=== PATIENT | male | born 1965 | race Caucasian/White ===

== ENCOUNTER 2017-05-28 10:05 | Emergency (ER) | END 2017-05-28 11:15 | disposition home or self-care (01) ==

== ENCOUNTER → 2017-06-08 | Outpatient (CLI) | END | disposition home or self-care (01) ==

== ENCOUNTER 2017-08-05 16:50 | Emergency (ER) | END 2017-08-05 18:43 | disposition home or self-care (01) ==

== ENCOUNTER 2017-11-15 02:52 | Inpatient (IN) | END 2017-12-23 17:50 | disposition home or self-care (01) | DRG 571 ==

== ENCOUNTER 2018-03-14 07:51 | Emergency (ER) | END 2018-03-14 19:56 | disposition home or self-care (01) ==

== ENCOUNTER 2018-07-13 22:27 | Inpatient (IN) | payer MEDICAID ==
[~2018-07-13] VITALS: Ht 177.8 cm; Wt 68.2 kg
[~2018-07-13 22:27] MED LIST changes: -CLON0.1T14 PO; -DOCU-144 PO; -DULO30CA47 PO; -FURO20TA3 PO; -LABE100T7 PO; -LEVE500T8 PO; -LEVO25TA6 PO; -MYCO250C3 PO; -POTA8CAP PO
[2018-07-13 22:33] VITALS: Ht 177.8 cm; Wt 68.2 kg
--- NOTE | 2018-07-13 22:57 | ERD ---
ER Documentation Chief Complaint Chief Complaint BIB RA881 from home,tripped & fell,c/o L hip pain,no deformity,HD MWF HPI The patient is a 53-year-old male, presenting to the ER because of left hip pain after he had a mechanical fall just prior to arrival, denies any other injury, denies headache, facial pain, neck pain, chest pain, dyspnea, abdominal pain, vomiting, dizzy, diarrhea. 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 Medications Home Meds Reported Medications Mycophenolate Mofetil* (Cellcept*) 250 Mg Capsule, 250 MG PO BID, CAP 07/14/18 Levetiracetam* (Levetiracetam*) 500 Mg Tablet, 500 MG PO BID, TAB 07/14/18 Acetaminophen* (Acetaminophen*) 650 Mg Tablet, 650 MG PO Q6H PRN for PAIN AND OR ELEVATED TEMP, #30 TAB 03/14/18 Nitroglycerin* (Nitrostat*) 0.4 Mg Tab.subl, 0.4 MG SL Q5MIN PRN for CHEST PAIN, BOTTLE 03/14/18 Dutasteride* (Avodart*) 0.5 Mg Capsule, 0.5 MG PO DAILY, CAP 03/14/18 Atorvastatin Calcium* (Atorvastatin Calcium*) 20 Mg Tablet, 20 MG PO QHS, #30 TAB 03/14/18 Aspirin* (Aspirin* EC) 81 Mg Tablet.dr, 81 MG PO DAILY, TAB 03/14/18 Clonidine Hcl* (Clonidine Hcl*) 0.1 Mg Tab, 0.1 MG PO BID, TAB 03/14/18 Nifedipine* (Nifedipine ER*) 60 Mg Tablet.sa, 60 MG PO DAILY, TAB.SA 03/14/18 Mycophenolate Sodium* (Myfortic*) 180 Mg Tab, 540 MG PO Q12, TAB 03/14/18 Tacrolimus* (Prograf*) 0.5 Mg Capsule, 0.5 MG PO Q12, CAP 03/14/18 Tacrolimus* (Prograf*) 1 Mg Capsule, 1 MG PO Q12, CAP 03/14/18 Discontinued Reported Medications Ranolazine* (Ranexa*) 500 Mg Tab.sr.12h, 500 MG PO Q12, TAB 03/14/18 Zinc Sulfate* (Zinc Sulfate*) 220 Mg Tablet, 220 MG PO DAILY, TAB 03/14/18 Folic Acid* (Folic Acid*) 1 Mg Tablet, 1 MG PO DAILY, TAB 03/14/18 Isosorbide Mononitrate* (Isosorbide Mononitrate*) 60 Mg Tab.er.24h, 60 MG PO DAILY, TAB 03/14/18 Prednisone* (Prednisone*) 2.5 Mg Tablet, 2.5 MG PO DAILY, TAB 03/14/18 Allergies Allergies: Coded Allergies: No Known Allergy (Unverified , 07/14/18) PMhx/Soc History of Surgery: Yes (KIDNEY/PANCREAS TRANSPLANT (2005), HEAD SHUNT (2010), R FOOT # 1-5 AMPUTATI) Anesthesia Reaction: No Hx Neurological Disorder: Yes (CVA WITH LEFT SIDE WEAKNESS, NEUROPATHY BILATERAL FEET) Hx Respiratory Disorders: Yes (SOB) Hx Cardiac Disorders: Yes (BRADYCARDIA, HTN) Hx Psychiatric Problems: No Hx Miscellaneous Medical Probl: Yes (SKIN CA RT ARM) Hx Alcohol Use: No Hx Substance Use: No Hx Tobacco Use: Yes (LAST WAS 2001) Physical Exam Vitals Vital Signs Date Temp Pulse Resp B/P (MAP) Pulse Ox O2 O2 Flow FiO2 Time Delivery Rate 07/14/18 67 12 178/87 100 Room Air 02:02 (117) 07/14/18 57 14 201/90 100 Room Air 01:08 (127) 07/13/18 97.8 68 18 239/111 100 22:33 (153) Physical Exam Const: No acute distress. Head: Atraumatic. Eyes: Normal Conjunctiva. ENT: Normal External Ears, Nose and Mouth. Neck: Full range of motion. No meningismus. Resp: Clear to auscultation bilaterally. Cardio: Regular rate and rhythm. Abd: Soft, non distended, normal bowel sounds, non tender. Skin: No petechiae or rashes. Back: No midline or flank tenderness. Ext: Mild left hip tenderness, no skin violation Neur: Awake and alert. No focal deficit Psych: Normal Mood and Affect. Result Diagram: 07/13/18 2351 07/13/18 2351 Results 24 hrs Laboratory Tests Test 07/13/18 23:51 White Blood Count 4.2 10^3/ul Red Blood Count 2.90 10^6/ul Hemoglobin 8.9 g/dl Hematocrit 30.0 % Mean Corpuscular Volume 103.4 fl Mean Corpuscular Hemoglobin 30.7 pg Mean Corpuscular Hemoglobin Concent 29.7 g/dl Red Cell Distribution Width 21.1 % Platelet Count 218 10^3/UL Mean Platelet Volume 9.8 fl Immature Granulocytes % 0.500 % Neutrophils % 63.5 % Lymphocytes % 20.2 % Monocytes % 14.2 % Eosinophils % 1.4 % Basophils % 0.2 % Nucleated Red Blood Cells % 0.0 /100WBC Immature Granulocytes # 0.020 10^3/ul Neutrophils # 2.6 10^3/ul Lymphocytes # 0.8 10^3/ul Monocytes # 0.6 10^3/ul Eosinophils # 0.1 10^3/ul Basophils # 0.0 10^3/ul Nucleated Red Blood Cells # 0.0 10^3/ul Sodium Level 144 mmol/L Potassium Level 4.3 mmol/L Chloride Level 104 mmol/L Carbon Dioxide Level 31 mmol/L Anion Gap 9 Blood Urea Nitrogen 30 mg/dl Creatinine 1.97 mg/dl Est Glomerular Filtrat Rate mL/min 35 mL/min Glucose Level 113 mg/dl Calcium Level 9.0 mg/dl Current Medications Medications Dose Sig/Lior Start Time Status Last (Trade) Ordered Route PRN Stop Time Admin Dose Reason Admin Morphine 2 mg ONCE STAT 07/13/18 DC 07/13/18 Sulfate IV 23:39 07/13/18 23:54 (morphine) 23:40 Ondansetron 4 mg ONCE STAT 07/13/18 DC 07/13/18 HCl (Zofran IV 23:39 07/13/18 23:54 Inj) 23:40 Morphine 2 mg ONCE STAT 07/14/18 DC 07/14/18 Sulfate IV 00:43 07/14/18 01:00 (morphine) 00:44 Hydralazine 20 mg ONCE ONCE 07/14/18 DC 07/14/18 HCl IV 01:30 07/14/18 01:37 (Apresoline) 01:34 Procedures/[place] [address] Rad[facility] Main Line: [phone] DIAGNOSTIC IMAGING REPORT Patient: DANETTE GAXIOLA : 1965 Age: 53 Sex: M MR #: [id number] DOS: 07/13/187 Ordering MD: AUSTIN RAMIREZ MD Location: E/R Room/Bed: PROCEDURE: DX Chest 1 View CLINICAL INDICATION: Chest pain. Ground-level fall per TECHNIQUE: AP Portable chest. COMPARISON: 05/08/2014 FINDINGS: Heart is increased slightly in size since the previous exam. Prominent mediastinum. Aortic calcified plaque absent. Central peribronchial thickening. Lungs are clear. IMPRESSION: Bronchitis versus central peribronchial edema. RPTAT: HLRS Physician Mohamud Date Time Electronically viewed and signed by Iram Palafox Physician on 07/14/2018 01:15 RS/ CC: AUSTIN RAMIREZ MD [id number] [place] [id number] Radiology Main Line: [phone] DIAGNOSTIC IMAGING REPORT Patient: DANETTE GAXIOLA : 1965 Age: 53 Sex: M MR #: [id number] DOS: 07/13/18 2337 Ordering MD: AUSTIN RAMIREZ MD Location: E/R Room/Bed: PROCEDURE: DX Femur. CLINICAL INDICATION: Ground-level fall. Left leg pain. TECHNIQUE: AP and lateral views COMPARISON: None. FINDINGS: Osseous structures: Normal bone mineralization. No acute fracture. No lytic or blastic changes. Soft tissues: Multiple surgical clips are present within the pelvis and proximal foreleg. Vascular calcifications are noted. IMPRESSION: No acute changes. RPTAT: HLRS Physician Mohamud Date Time Electronically viewed and signed by Iram Plaafox Physician on 07/14/2018 01:16 RS/ CC: AUSTIN RAMIREZ MD [id number] [place] [address] Radiology Main Line: [phone] DIAGNOSTIC IMAGING REPORT Patient: DANETTE GAXIOLA : 1965 Age: 53 Sex: M MR #: [id number] DOS: 07/13/18 2337 Ordering MD: AUSTIN RAMIREZ MD Location: E/R Room/Bed: PROCEDURE: CT pelvis without contrast CLINICAL INDICATION: 53-year-old male. Left hip pain after ground-level fall. TECHNIQUE: A CT of the pelvis was performed on a multi-slice CT scanner utilizing high-resolution axial imaging. Sagittal, coronal, multiplanar reformatted images were made. Soft tissue and bone algorithms were utilized. One or more the following dose reduction techniques were utilized: Automated exposure control, adjustment of the mA/ or kV according to patient's size, or use of iterative reconstruction technique. The CTDIvol is 4.74 mGy and the DLP is 175.91 mGy-cm. COMPARISON: Pelvis x-ray 07/13/2018 FINDINGS: Osseous structures: No left hip fracture is identified. Intact bony pelvis. No lytic or blastic lesions. Joints: No left hip dislocation. Intact left and right sacroiliac joints and pubic symphysis. Soft tissue structures: Multi lumen right femoral vein catheter, terminating just proximal to the origin of the IVC. Anterior left lower quadrant renal transplant. IMPRESSION: No evidence of left hip fracture or dislocation. RPTAT: HLRS Physician Mohamud Date Time Electronically viewed and signed by Iram Palafox Physician on 07/14/2018 01:14 RS/ CC: AUSTIN RAMIREZ MD [id number] EKG: Read by emergency physician Rate/Rhythm: Normal Sinus Rhythm 57 beats/min QRS, ST, T-waves: No ST elevation, no T inversion, PAC Impression: Abnormal EKG MEDICAL MAKING DECISION: The patient is a 53-year-old male, presenting with acute left hip pain, unable to ambulate in the ER, acute hypertensive urgency. He was treated with morphine 2 mg IV x2 for pain, Zofran 4 mg IV for nausea, hydralazine 10 mg IV for acute accelerated hypertension with good response The differential diagnoses considered include but are not limited to internal derangement, fracture, contusion Departure Diagnosis: Primary Impression: Left hip pain Additional Impressions: Hypertensive urgency Anemia Leukopenia Condition: Stable Comments I discussed the findings with the patient. I am waiting for Dr Benito to call back to admit the patient Disclaimer: Inadvertent spelling and grammatical errors are likely due to EHR/dictation software use and do not reflect on the overall quality of patient care. Also, please note that the electronic time recorded on this note does not necessarily reflect the actual time of the patient encounter. AUSTIN RAMIREZ MD Jul 13, 2018 22:57
[2018-07-13] MEDS ORDERED: ONDANSETRON 4 MG INJ IV STA (23:39)
[2018-07-13] MEDS ORDERED: morphine 2 MG INJ IV STA (23:39)
[2018-07-14] VITALS (18 sets, daily range): BP systolic 99–178; BP diastolic 56–96; PULSE 56–65; RESP 16
[2018-07-14] MEDS ORDERED: morphine 2 MG INJ IV STA ×2 (00:43→04:44)
[2018-07-14] MEDS ORDERED: hydrALAzine 20 MG INJ IV ONE (01:30)
[2018-07-14] MEDS ORDERED: LEVE500T8 PO (02:10)
[2018-07-14] MEDS ORDERED: MYCO250C3 PO (02:10)
[2018-07-14] MEDS ORDERED: ONDANSETRON 4 MG INJ IV PRN (09:00)
[2018-07-14] MEDS ORDERED: PANTOPRAZOLE 40 MG INJ IV SCH (09:00)
[2018-07-14] MEDS ORDERED: ACETAMINOPHEN 325 MG TAB PO PRN (09:00)
[2018-07-14] MEDS: morphine 2 MG INJ IV PRN ×3 (09:29→23:57)
[2018-07-14] MEDS ORDERED: GLUCOSE GEL 15 GRAM TUBE PO PRN ×2 (09:30)
[2018-07-14] MEDS ORDERED: GLUCAGON 1 MG INJ IM PRN (09:30)
[2018-07-14] MEDS ORDERED: GLUCOSE GEL 15 GRAM TUBE BUCCAL PRN (09:30)
[2018-07-14] MEDS ORDERED: DEXTROSE 50% 50 ML SYRINGE IV PRN ×2 (09:30)
[2018-07-14] MEDS: INSULIN ASPART [NOVOLOG] 3 ML PEN SC SCH ×3 (12:00→21:00)
[2018-07-14] MEDS ORDERED: FURO20TA3 PO (14:09)
[2018-07-14] MEDS ORDERED: DULO30CA47 PO (14:12)
[2018-07-14] MEDS ORDERED: POTA8CAP PO (14:12)
[2018-07-14] MEDS ORDERED: LEVO25TA6 PO (14:12)
[2018-07-14] MEDS ORDERED: LABE100T7 PO (14:12)
[2018-07-14] MEDS ORDERED: DOCU-144 PO (14:12)
--- NOTE | 2018-07-14 14:17 | HP ---
NIKI HASSAN 07/14/18 1417: Date/Time of Note Date/Time of Note DATE: 07/14/18 TIME: 14:17 Assessment/Plan VTE Prophylaxis Pharmacological prophylaxis: heparin Pharm contraindication: other Lines/Catheters IV Catheter Type (from Nrsg): Saline Lock Assessment/Plan Hospital Course 1. S/p ground fall, left hip pain. Per CT scan of pelvis negative fractures, left hip Xray is negative 2. Bronchitis versus central peribronchial edema per chest Xray. 3. History of kidney and pancreatic transplant, on Tacrolimus. 4. ESRD on HD MWFr 5. Hypertension. 6. Macrocytic normochromic anemia. 7. Peripheral vascular disease, status post left popliteal bypass on 12/02/2017. 8. Right foot partial amputation. 9. Skin cancer with right hand malignant lesion. 10. Diabetes mellitus type II 11. Hypothyroidism 12. Depression 13. CAD 14. Adrenal insufficiency 15. dyslipidemia 16. Bradycardia, asymptomatic Assessment/Plan -DVT prophylaxis Heparin 5000 BID -GI prophylaxis Protonix -BP control -C.w HD c/w home meds -c/w LAsix -pain control -TSH tomorrow Result Diagram: 07/13/18 2351 07/13/18 2351 Results 24hrs Laboratory Tests Test 07/13/18 23:49 07/13/18 23:51 07/14/18 13:11 Hepatitis B Surface Antigen NEGATIVE White Blood Count 4.2 #L Red Blood Count 2.90 #L Hemoglobin 8.9 #L Hematocrit 30.0 #L Mean Corpuscular Volume 103.4 H Mean Corpuscular Hemoglobin 30.7 Mean Corpuscular Hemoglobin Concent 29.7 L Red Cell Distribution Width 21.1 #H Platelet Count 218 Mean Platelet Volume 9.8 Immature Granulocytes % 0.500 H Neutrophils % 63.5 Lymphocytes % 20.2 Monocytes % 14.2 H Eosinophils % 1.4 Basophils % 0.2 Nucleated Red Blood Cells % 0.0 Immature Granulocytes # 0.020 Neutrophils # 2.6 Lymphocytes # 0.8 Monocytes # 0.6 Eosinophils # 0.1 Basophils # 0.0 Nucleated Red Blood Cells # 0.0 Sodium Level 144 Potassium Level 4.3 Chloride Level 104 Carbon Dioxide Level 31 Anion Gap 9 Blood Urea Nitrogen 30 H Creatinine 1.97 H Est Glomerular Filtrat Rate mL/min 35 L Glucose Level 113 Calcium Level 9.0 Bedside Glucose 118 HPI/ROS Admit Date/Time Admit Date/Time Jul 14, 2018 at 06:31 Hx of Present Illness This is a 53-year-old male with a past medical history of kidney and pancreatic transplant, CKD, hypothyroidism, depression, and anemia presented to the ER because of left hip pain after he had a mechanical fall just prior to arrival. He said he fail on 07/12 in HD center. He lost his balance,denied loss of consciousness. He was started on HD 04/25/2019 ROS weak Respiratory: cough; No no complaints, No pain, No pleuritic pain, No shortness of breath, No sputum, No wheezing, No other Cardiovascular: chest pain; No no complaints, No edema, No lightheadedness, No orthopenea, No palpitations, No paroxysmal nocturnal dyspnea, No other Gastrointestinal: constipation; No no complaints, No pain, No blood, No decreased appetite, No diarrhea, No flatus, No nausea, No passing stool, No vomiting, No other Genitourinary: dysuria; No no complaints, No bleeding, No discharge, No flank pain, No hematuria, No other Musculoskeletal: bone/joint pain Endocrine: dry skin Psychological: depression PMH/Family/Social Past Medical History Medical History: coronary artery disease, hypertension, renal disease Medications Current Medications Acetaminophen (Tylenol Tab) 650 mg Q6H PRN PO MILD PAIN(1-3)OR ELEVATED TEMP; Start 07/14/18 at 09:00 Ondansetron HCl (Zofran Inj) 4 mg Q6H PRN IV NAUSEA AND/OR VOMITING; Start 07/14/18 at 09:00 Pantoprazole (Protonix Iv) 40 mg DAILY@06 IV Last administered on 07/14/18at 10:20; Admin Dose 40 MG; Start 07/14/18 at 09:00 Morphine Sulfate (morphine) 2 mg Q4H PRN IV SEVERE PAIN LEVEL 7-10 Last administered on 07/14/18at 13:31; Admin Dose 2 MG; Start 07/14/18 at 09:00 Insulin Aspart (Novolog Insulin Pen) NOVOLOG *MILD* ALGORITHM WITH MEALS BEDTIME SC ; Start 07/14/18 at 12:00 Hydralazine HCl (Apresoline) 10 mg Q6H PRN IV SBP GREATER THAN 170; Start 07/14/18 at 09:00 Miscellaneous Information 1 ea NOTE XX ; Start 07/14/18 at 09:30 Glucose (Glutose) 15 gm Q15M PRN PO DECREASED GLUCOSE; Start 07/14/18 at 09:30 Glucose (Glutose) 22.5 gm Q15M PRN PO DECREASED GLUCOSE; Start 07/14/18 at 09:30 Dextrose (D50w Syringe) 25 ml Q15M PRN IV DECREASED GLUCOSE; Start 07/14/18 at 0 9:30 Dextrose (D50w Syringe) 50 ml Q15M PRN IV DECREASED GLUCOSE; Start 07/14/18 at 09:30 Glucagon (Glucagen) 1 mg Q15M PRN IM DECREASED GLUCOSE; Start 07/14/18 at 09:30 Glucose (Glutose) 15 gm Q15M PRN BUCCAL DECREASED GLUCOSE; Start 07/14/18 at 09:30 Diagnostic Test (Pha) (Accu-Chek) 1 ea 02 XX ; Start 07/15/18 at 02:00 Coded Allergies: No Known Allergy (Unverified , 07/14/18) Past Surgical History Past Surgical Hx: other (pancreas and kidney transplant, s.p right foot partial amputation) Social History Alcohol Use: none Smoking Status: Never smoker Drug Use: none Exam/Review of Systems Vital Signs Vitals Vital Signs Date Temp Pulse Resp B/P (MAP) Pulse Ox O2 O2 Flow FiO2 Time Delivery Rate 07/14/18 97.9 56 16 178/96 95 Room Air 08:15 (123) Exam Exam right hip Permacath Constitutional: alert, oriented Psych: depression Eyes: other (left eye discoloration) ENMT: nl external ears & nose Neck: supple Cardiovascular: regular rate and rhythm Gastrointestinal: soft, surgical scars Musculoskeletal: joint tenderness (both hips), muscle weakness Skin: ecchymosis, other (left foot redness and pain) JEVON MANCILLA MD 07/14/18 1723: Assessment/Plan Assessment/Plan Assessment/Plan SEEN ADN EXAMINED WITH [facility] PHOTOGRAPHER LEFT HIP PAIN XRAY AND CT NEG ORTHO CONSULT Result Diagram: 07/13/18 2351 07/13/18 2351 PMH/Family/Social Past Medical History Coded Allergies: No Known Allergy (Unverified , 07/14/18) NIKI HASSAN Jul 14, 2018 14:17 JEVON MANCILLA MD Jul 14, 2018 17:23
[2018-07-14] MEDS ORDERED: HEPARIN 1000 UNITS/ML 10 ML INJ CATHETER ONE (14:30)
[2018-07-14] MEDS ORDERED: NITROGLYCERIN (SL) 0.4 MG TAB SL PRN (14:30)
[2018-07-14] MEDS: TACROLIMUS 0.5 MG CAP PO SCH (17:59)
[2018-07-14] MEDS: DUTASTERIDE 0.5 MG CAP PO SCH (18:00)
[2018-07-14] MEDS: DOCUSATE SODIUM 100 MG CAP PO SCH (18:00)
[2018-07-14] MEDS: DULOXETINE 30 MG CAP DR PO SCH (18:00)
[2018-07-14] MEDS: ASPIRIN (EC) 81 MG TAB PO SCH (18:00)
[2018-07-14] MEDS: TACROLIMUS 1 MG CAP PO SCH (18:00)
[2018-07-14] MEDS: NIFEdipine (XL) 60 MG TAB PO SCH (18:01)
[2018-07-14] MEDS: FUROSEMIDE 20 MG TAB PO SCH (18:01)
[2018-07-14] MEDS ORDERED: MYCOPHENOLATE 250 MG CAP PO SCH (21:00)
[2018-07-14] MEDS: HEPARIN 5,000 UNIT/1 ML VIAL SC SCH (21:00)
[2018-07-14] MEDS: LEVETIRACETAM 500 MG TAB PO SCH (21:00)
[2018-07-14] MEDS: POTASSIUM CHLORIDE (SR) 8 MEQ CAP PO SCH (21:35)
[2018-07-14] MEDS: ATORVASTATIN 20 MG TAB PO SCH (21:35)
[2018-07-14] MEDS: MYCOPHENOLATE (SR) 180 MG TAB PO SCH (21:36)
[2018-07-14] MEDS: EPOETIN 4000 UNITS/1 ML INJ (ESRD) SC SCH (21:48)
[2018-07-15] MEDS: DOCUSATE SODIUM 100 MG CAP PO SCH ×3 (01:00→20:26)
[2018-07-15] MEDS: TACROLIMUS 0.5 MG CAP PO SCH ×3 (01:00→20:25)
[2018-07-15] MEDS: TACROLIMUS 1 MG CAP PO SCH ×3 (01:00→20:25)
[2018-07-15 01:30] VITALS: BP 154/75; PULSE 60; RESP 16
[2018-07-15] MEDS ORDERED: ACCUCHECK AT 2AM (Patients on SS coverage) XX SCH (02:00)
[2018-07-15] MEDS: PANTOPRAZOLE (EC) 40 MG TAB PO SCH (05:27)
[2018-07-15] MEDS: morphine 2 MG INJ IV PRN ×2 (05:27→20:35)
[2018-07-15] MEDS: FUROSEMIDE 20 MG TAB PO SCH ×2 (05:28→18:08)
[2018-07-15 07:23] VITALS: BP 146/73; PULSE 53; RESP 16
[2018-07-15] MEDS: INSULIN ASPART [NOVOLOG] 3 ML PEN SC SCH ×2 (08:00→12:00)
[2018-07-15] MEDS: DUTASTERIDE 0.5 MG CAP PO SCH (09:20)
[2018-07-15] MEDS: LEVETIRACETAM 500 MG TAB PO SCH ×2 (09:20→18:07)
[2018-07-15] MEDS: DULOXETINE 30 MG CAP DR PO SCH (09:20)
[2018-07-15] MEDS: MYCOPHENOLATE (SR) 180 MG TAB PO SCH ×2 (09:20→20:25)
[2018-07-15] MEDS: POTASSIUM CHLORIDE (SR) 8 MEQ CAP PO SCH ×2 (09:21→20:26)
[2018-07-15] MEDS: ASPIRIN (EC) 81 MG TAB PO SCH (09:21)
[2018-07-15] MEDS: LEVOTHYROXINE 100 MCG TAB PO SCH (09:21)
[2018-07-15] MEDS: LABETALOL 100 MG TAB PO SCH (09:22)
[2018-07-15] MEDS: HEPARIN 5,000 UNIT/1 ML VIAL SC SCH ×2 (09:40→20:28)
[2018-07-15 14:27] VITALS: BP 117/66; PULSE 53; RESP 16
--- NOTE | 2018-07-15 15:09 | PN ---
Date/Time of Note Date/Time of Note DATE: 07/15/18 TIME: 15:06 Assessment/Plan VTE Prophylaxis Risk score (from Nsg)>0 risk: 2 SCD applied (from Nsg): Yes Pharmacological prophylaxis: heparin Lines/Catheters IV Catheter Type (from Nrsg): Saline Lock Urinary Cath still in place: No Assessment/Plan Hospital Course 1. S/p ground fall, left hip pain. Per CT scan of pelvis negative fractures, left hip Xray is negative. Pain is not controlled by meds 2. Bronchitis versus central peribronchial edema per chest Xray. Clinically clear. Sometimes it takes 72 hours to be seen on Xray. F/up chest Xray 3. History of kidney and pancreatic transplant, on Tacrolimus. 4. ESRD on HD MWFr 5. Hypertension. 6. Macrocytic normochromic anemia. 7. Peripheral vascular disease, status post left popliteal bypass on 12/02/2017. 8. Right foot partial amputation. 9. Skin cancer with right hand malignant lesion. 10. Diabetes mellitus type II 11. Hypothyroidism 12. Depression 13. CAD 14. Adrenal insufficiency 15. dyslipidemia 16. Bradycardia, asymptomatic Assessment/Plan -DVT prophylaxis Heparin 5000 BID Chest xray tomorrow -stop accucheck , pt is not diabetic -Dr Tariq for orthoconsult, called -GI prophylaxis Protonix -BP control -C.w HD c/w home meds -c/w LAsix -pain control -TSH normal Result Diagram: 07/15/18 0451 07/15/18 0452 Results 24hrs Laboratory Tests Test 07/14/18 17:55 07/15/18 02:55 07/15/18 04:49 07/15/18 04:51 Bedside Glucose 96 79 Hemoglobin A1c 5.0 White Blood Count 4.1 L Red Blood Count 3.02 L Hemoglobin 9.4 L Hematocrit 31.3 L Mean Corpuscular Volume 103.6 H Mean Corpuscular 31.1 Hemoglobin Mean Corpuscular 30.0 L Hemoglobin Concent Red Cell Distribution 20.8 H Width Platelet Count 219 Mean Platelet Volume 9.7 Immature Granulocytes % 0.500 H Neutrophils % 55.4 Lymphocytes % 25.1 Monocytes % 17.3 H Eosinophils % 1.5 Basophils % 0.2 Nucleated Red Blood 0.0 Cells % Immature Granulocytes # 0.020 Neutrophils # 2.3 Lymphocytes # 1.0 Monocytes # 0.7 Eosinophils # 0.1 Basophils # 0.0 Nucleated Red Blood 0.0 Cells # Thyroid Stimulating 1.200 Hormone (TSH) Test 07/15/18 04:52 07/15/18 08:13 Sodium Level 141 Potassium Level 4.7 Chloride Level 106 Carbon Dioxide Level 30 Anion Gap 5 Blood Urea Nitrogen 22 H Creatinine 1.64 H Est Glomerular Filtrat 44 L Rate mL/min Glucose Level 82 Calcium Level 8.6 Bedside Glucose 75 Subjective 24 Hr Interval Summary Cardiovascular: no complaints Musculoskeletal: bone/joint pain (left hip pain) Exam/Review of Systems Exam Vitals Vital Signs Date Temp Pulse Resp B/P (MAP) Pulse Ox O2 O2 Flow FiO2 Time Delivery Rate 07/15/18 98.3 53 16 117/66 99 Room Air 14:27 (83) Intake and Output 07/14/18 07/14/18 07/15/18 1515:00 23:00 07:00 OutputOutput Total 0 ml 2600 ml BalanceBalance 0 ml -2600 ml Exam right hip Permcath Constitutional: alert, oriented Neck: supple Respiratory: clear to auscultation Cardiovascular: regular rate and rhythm Gastrointestinal: soft, surgical scars Musculoskeletal: joint tenderness (left hip) Results Results 24hrs Laboratory Tests Test 07/14/18 17:55 07/15/18 02:55 07/15/18 04:49 07/15/18 04:51 Bedside Glucose 96 79 Hemoglobin A1c 5.0 White Blood Count 4.1 L Red Blood Count 3.02 L Hemoglobin 9.4 L Hematocrit 31.3 L Mean Corpuscular Volume 103.6 H Mean Corpuscular 31.1 Hemoglobin Mean Corpuscular 30.0 L Hemoglobin Concent Red Cell Distribution 20.8 H Width Platelet Count 219 Mean Platelet Volume 9.7 Immature Granulocytes % 0.500 H Neutrophils % 55.4 Lymphocytes % 25.1 Monocytes % 17.3 H Eosinophils % 1.5 Basophils % 0.2 Nucleated Red Blood 0.0 Cells % Immature Granulocytes # 0.020 Neutrophils # 2.3 Lymphocytes # 1.0 Monocytes # 0.7 Eosinophils # 0.1 Basophils # 0.0 Nucleated Red Blood 0.0 Cells # Thyroid Stimulating 1.200 Hormone (TSH) Test 07/15/18 04:52 07/15/18 08:13 Sodium Level 141 Potassium Level 4.7 Chloride Level 106 Carbon Dioxide Level 30 Anion Gap 5 Blood Urea Nitrogen 22 H Creatinine 1.64 H Est Glomerular Filtrat 44 L Rate mL/min Glucose Level 82 Calcium Level 8.6 Bedside Glucose 75 Medications Medication Current Medications Acetaminophen (Tylenol Tab) 650 mg Q6H PRN PO MILD PAIN(1-3)OR ELEVATED TEMP; Start 07/14/18 at 09:00 Ondansetron HCl (Zofran Inj) 4 mg Q6H PRN IV NAUSEA AND/OR VOMITING; Start 07/14/18 at 09:00 Morphine Sulfate (morphine) 2 mg Q4H PRN IV SEVERE PAIN LEVEL 7-10 Last administered on 07/15/18at 05:27; Admin Dose 2 MG; Start 07/14/18 at 09:00 Insulin Aspart (Novolog Insulin Pen) NOVOLOG *MILD* ALGORITHM WITH MEALS BEDTIME SC ; Start 07/14/18 at 12:00 Hydralazine HCl (Apresoline) 10 mg Q6H PRN IV SBP GREATER THAN 170; Start 07/14/18 at 09:00 Miscellaneous Information 1 ea NOTE XX ; Start 07/14/18 at 09:30 Glucose (Glutose) 15 gm Q15M PRN PO DECREASED GLUCOSE; Start 07/14/18 at 09:30 Glucose (Glutose) 22.5 gm Q15M PRN PO DECREASED GLUCOSE; Start 07/14/18 at 09:30 Dextrose (D50w Syringe) 25 ml Q15M PRN IV DECREASED GLUCOSE; Start 07/14/18 at 09:30 Dextrose (D50w Syringe) 50 ml Q15M PRN IV DECREASED GLUCOSE; Start 07/14/18 at 09:30 Glucagon (Glucagen) 1 mg Q15M PRN IM DECREASED GLUCOSE; Start 07/14/18 at 09:30 Glucose (Glutose) 15 gm Q15M PRN BUCCAL DECREASED GLUCOSE; Start 07/14/18 at 09:30 Diagnostic Test (Pha) (Accu-Chek) 1 ea 02 XX Last administered on 07/15/18at 02:50; Admin Dose 1 EA; Start 07/15/18 at 02:00 Pantoprazole (Protonix Tab) 40 mg DAILY@06 PO Last administered on 07/15/18at 05:27; Admin Dose 40 MG; Start 07/15/18 at 06:00 Aspirin (Halfprin) 81 mg DAILY PO Last administered on 3/9/19at 09:21; Admin Dose 81 MG; Start 07/14/18 at 16:00 Atorvastatin Calcium (Lipitor) 20 mg QHS PO Last administered on 07/14/18 21:35; Admin Dose 20 MG; Start 07/14/18 at 21:00 Clonidine (Catapres) 0.1 mg BID PO Last administered on 07/15/18 09:24; Admin Dose 0.1 MG; Start 07/14/18 at 16:00 Docusate Sodium (Colace) 200 mg BID PO Last administered on 07/14/18 18:00; Admin Dose 200 MG; Start 07/14/18 at 16:00 Duloxetine HCl (Cymbalta) 30 mg DAILY PO Last administered on 07/15/18 09:20; Admin Dose 30 MG; Start 07/14/18 at 16:00 Dutasteride (Avodart) 0.5 mg DAILY PO Last administered on 07/15/18 09:20; Admin Dose 0.5 MG; Start 07/14/18 at 16:00 Furosemide (Lasix) 20 mg BID DIURETICS PO Last administered on 07/15/18 05:28; Admin Dose 20 MG; Start 07/14/18 at 18:00 Labetalol HCl (Normodyne) 100 mg DAILY PO Last administered on 07/15/18 09:22; Admin Dose 100 MG; Start 07/15/18 at 09:00 Levetiracetam (Keppra) 500 mg BID PO Last administered on 07/15/18 09:20; Admin Dose 500 MG; Start 07/14/18 at 21:00 Levothyroxine Sodium (Synthroid) 100 mcg BEFORE BREAKFAST PO Last administered on 07/15/18 09:21; Admin Dose 100 MCG; Start 07/15/18 at 07:00 Mycophenolate Sodium (Myfortic) 540 mg Q12 PO Last administered on 07/15/18 09:20; Admin Dose 540 MG; Start 07/14/18 at 21:00 Nifedipine (Procardia Xl) 60 mg Q24H PO Last administered on 07/14/18 18:01; Admin Dose 60 MG; Start 07/14/18 at 17:00 Nitroglycerin (Nitroglycerin (Sl Tab) 0.4 Mg) 0.4 tab Q4 PRN SL CHEST PAIN; Start 07/14/18 at 14:30 Potassium Chloride (Micro-K) 8 meq BID PO Last administered on 07/15/18 09:21; Admin Dose 8 MEQ; Start 07/14/18 at 21:00 Tacrolimus (Prograf) 0.5 mg Q12 PO Last administered on 07/15/18 09:21; Admin Dose 0.5 MG; Start 07/14/18 at 16:00 Tacrolimus (Prograf) 1 mg Q12 PO Last administered on 07/15/18 09:21; Admin Dose 1 MG; Start 07/14/18 at 16:00 Epoetin Talat (Epogen (Esrd)) 4,000 units MoWeFr@17 SC ; Start 07/14/18 at 17:00 Heparin Sodium (Porcine) (Heparin (5000 Units/1ml)) 5,000 unit BID SC Last administered on 07/15/18 09:40; Admin Dose 5,000 UNIT; Start 07/14/18 at 21:00 Tramadol HCl (Ultram) 50 mg Q6H PRN PO MODERATE PAIN LEVEL 4-6; Start 07/14/18 at 16:30 NIKI HASSAN Jul 15, 2018 15:08
[2018-07-15] MEDS: NIFEdipine (XL) 60 MG TAB PO SCH (18:08)
[2018-07-15 19:25] VITALS: BP 132/68; PULSE 54; RESP 18
[2018-07-15] MEDS: ATORVASTATIN 20 MG TAB PO SCH (20:26)
[2018-07-16] MEDS: morphine 2 MG INJ IV PRN ×5 (01:14→21:08)
[2018-07-16 01:19] VITALS: BP 134/64; PULSE 51; RESP 16
[2018-07-16] MEDS: PANTOPRAZOLE (EC) 40 MG TAB PO SCH (05:09)
[2018-07-16] MEDS: FUROSEMIDE 20 MG TAB PO SCH ×2 (05:09→17:25)
[2018-07-16 07:14] VITALS: BP 116/66; PULSE 55; RESP 16
[2018-07-16] MEDS: DOCUSATE SODIUM 100 MG CAP PO SCH ×2 (09:04→21:06)
[2018-07-16] MEDS: LEVETIRACETAM 500 MG TAB PO SCH ×2 (09:05→21:06)
[2018-07-16] MEDS: MYCOPHENOLATE (SR) 180 MG TAB PO SCH ×2 (09:06→21:06)
[2018-07-16] MEDS: TACROLIMUS 0.5 MG CAP PO SCH ×2 (09:07→21:07)
[2018-07-16] MEDS: HEPARIN 5,000 UNIT/1 ML VIAL SC SCH ×2 (09:07→21:10)
[2018-07-16] MEDS: ASPIRIN (EC) 81 MG TAB PO SCH (09:07)
[2018-07-16] MEDS: TACROLIMUS 1 MG CAP PO SCH ×2 (09:07→21:06)
[2018-07-16] MEDS: LEVOTHYROXINE 100 MCG TAB PO SCH (09:07)
[2018-07-16] MEDS: POTASSIUM CHLORIDE (SR) 8 MEQ CAP PO SCH ×2 (09:07→21:07)
[2018-07-16] MEDS: LABETALOL 100 MG TAB PO SCH (09:08)
[2018-07-16] MEDS: DUTASTERIDE 0.5 MG CAP PO SCH (09:08)
[2018-07-16] MEDS: DULOXETINE 30 MG CAP DR PO SCH (12:30)
[2018-07-16 14:13] VITALS: BP 124/67; PULSE 52; RESP 17
[2018-07-16] MEDS: NIFEdipine (XL) 60 MG TAB PO SCH (16:35)
--- NOTE | 2018-07-16 17:13 | PN ---
Date/Time of Note Date/Time of Note DATE: 07/16/18 TIME: 17:11 Assessment/Plan VTE Prophylaxis Risk score (from Ns)>0 risk: 3 SCD applied (from Ns): Yes SCD contraindicated: other Pharmacological prophylaxis: other Lines/Catheters IV [facility]from [facility] Saline Lock Urinary Cath still in place: No Assessment/Plan Hospital Course 1. S/p ground fall, left hip pain. Per CT scan of pelvis negative fractures, left hip Xray is negative. Pain is not controlled by meds 2. htn 3. History of kidney and pancreatic transplant, on Tacrolimus. 4. ESRD on HD MWFr 5. Hypertension. 6. Macrocytic normochromic anemia. 7. Peripheral vascular disease, status post left popliteal bypass on 12/02/2017. 8. Right foot partial amputation. 9. Skin cancer with right hand malignant lesion. 10. Diabetes mellitus type II 11. Hypothyroidism 12. Depression 13. CAD 14. Adrenal insufficiency 15. dyslipidemia 16. Bradycardia, asymptomatic plan pain meds hd am Result Diagram: 07/16/18 0547 07/16/18 0547 Results 24hrs Laboratory Tests Test 07/15/18 19:00 07/16/18 05:47 Urine Color MINI Urine Clarity CLEAR Urine pH 6.0 Urine Specific [place] 1.018 Urine Ketones NEGATIVE Urine Nitrite NEGATIVE Urine Bilirubin NEGATIVE Urine Urobilinogen 2+ H Urine Leukocyte Esterase NEGATIVE Urine Microscopic RBC 46 H Urine Microscopic WBC 7 H Urine Bacteria FEW A Urine Hemoglobin 1+ H Urine Glucose NEGATIVE Urine Total Protein 3+ H White Blood Count 2.8 #L Red Blood Count 3.02 L Hemoglobin 9.3 L Hematocrit 31.1 L Mean Corpuscular Volume 103.0 H Mean Corpuscular Hemoglobin 30.8 Mean Corpuscular Hemoglobin Concent 29.9 L Red Cell Distribution Width 19.9 H Platelet Count 226 Mean Platelet Volume 9.7 Immature Granulocytes % 0.700 H Neutrophils % 42.8 Lymphocytes % 36.3 Monocytes % 17.6 H Eosinophils % 2.2 Basophils % 0.4 Nucleated Red Blood Cells % 0.0 Immature Granulocytes # 0.020 Neutrophils # 1.2 L Lymphocytes # 1.0 Monocytes # 0.5 Eosinophils # 0.1 Basophils # 0.0 Nucleated Red Blood Cells # 0.0 Sodium Level 141 Potassium Level 4.7 Chloride Level 104 Carbon Dioxide Level 29 Anion Gap 8 Blood Urea Nitrogen 32 H Creatinine 2.03 H Est Glomerular Filtrat Rate mL/min 34 L Glucose Level 114 Calcium Level 8.4 Subjective 24 Hr Interval Summary Respiratory: no complaints Cardiovascular: no complaints Musculoskeletal: bone/joint pain Exam/Review of Systems Exam Vitals Vital Signs Date Temp Pulse Resp B/P (MAP) Pulse Ox O2 O2 Flow FiO2 Time Delivery Rate 07/16/18 97.9 52 17 124/67 100 Room Air 14:13 (86) Intake and Output 07/15/18 07/15/18 07/16/18 1515:00 23:00 07:00 IntakeIntake Total 240 ml 300 ml 240 ml OutputOutput Total 300 ml 175 ml 100 ml BalanceBalance -60 ml 125 ml 140 ml Neck: supple Respiratory: clear to auscultation Cardiovascular: regular rate and rhythm Gastrointestinal: soft, bowel sounds Musculoskeletal: joint tenderness Skin: ecchymosis (+left hip) Results Results 24hrs Laboratory Tests Test 07/15/18 19:00 07/16/18 05:47 Urine Color MINI Urine Clarity CLEAR Urine pH 6.0 Urine Specific [place] 1.018 Urine Ketones NEGATIVE Urine Nitrite NEGATIVE Urine Bilirubin NEGATIVE Urine Urobilinogen 2+ H Urine Leukocyte Esterase NEGATIVE Urine Microscopic RBC 46 H Urine Microscopic WBC 7 H Urine Bacteria FEW A Urine Hemoglobin 1+ H Urine Glucose NEGATIVE Urine Total Protein 3+ H White Blood Count 2.8 #L Red Blood Count 3.02 L Hemoglobin 9.3 L Hematocrit 31.1 L Mean Corpuscular Volume 103.0 H Mean Corpuscular Hemoglobin 30.8 Mean Corpuscular Hemoglobin Concent 29.9 L Red Cell Distribution Width 19.9 H Platelet Count 226 Mean Platelet Volume 9.7 Immature Granulocytes % 0.700 H Neutrophils % 42.8 Lymphocytes % 36.3 Monocytes % 17.6 H Eosinophils % 2.2 Basophils % 0.4 Nucleated Red Blood Cells % 0.0 Immature Granulocytes # 0.020 Neutrophils # 1.2 L Lymphocytes # 1.0 Monocytes # 0.5 Eosinophils # 0.1 Basophils # 0.0 Nucleated Red Blood Cells # 0.0 Sodium Level 141 Potassium Level 4.7 Chloride Level 104 Carbon Dioxide Level 29 Anion Gap 8 Blood Urea Nitrogen 32 H Creatinine 2.03 H Est Glomerular Filtrat Rate mL/min 34 L Glucose Level 114 Calcium Level 8.4 Medications Medication Current Medications Acetaminophen (Tylenol Tab) 650 mg Q6H PRN PO MILD PAIN(1-3)OR ELEVATED TEMP; Start 07/14/18 at 09:00 Ondansetron HCl (Zofran Inj) 4 mg Q6H PRN IV NAUSEA AND/OR VOMITING; Start 07/14/18 at 09:00 Morphine Sulfate (morphine) 2 mg Q4H PRN IV SEVERE PAIN LEVEL 7-10 Last administered on 07/16/18 16:36; Admin Dose 2 MG; Start 07/14/18 at 09:00 Hydralazine HCl (Apresoline) 10 mg Q6H PRN IV SBP GREATER THAN 170; Start 07/14/18 at 09:00 Glucose (Glutose) 15 gm Q15M PRN PO DECREASED GLUCOSE; Start 07/14/18 at 09:30 Glucose (Glutose) 22.5 gm Q15M PRN PO DECREASED GLUCOSE; Start 07/14/18 at 09:30 Dextrose (D50w Syringe) 50 ml Q15M PRN IV DECREASED GLUCOSE; Start 07/14/18 at 09:30 Pantoprazole (Protonix Tab) 40 mg DAILY@06 PO Last administered on 07/16/18 05:09; Admin Dose 40 MG; Start 07/15/18 at 06:00 Aspirin (Halfprin) 81 mg DAILY PO Last administered on 07/16/18 09:07; Admin Dose 81 MG; Start 07/14/18 at 16:00 Atorvastatin Calcium (Lipitor) 20 mg QHS PO Last administered on 07/15/18 20:26; Admin Dose 20 MG; Start 07/14/18 at 21:00 Clonidine (Catapres) 0.1 mg BID PO Last administered on 07/16/18 09:08; Admin Dose 0.1 MG; Start 07/14/18 at 16:00 Docusate Sodium (Colace) 200 mg BID PO Last administered on 07/16/18 09:04; Admin Dose 200 MG; Start 07/14/18 at 16:00 Duloxetine HCl (Cymbalta) 30 mg DAILY PO Last administered on 07/16/18 12:30; Admin Dose 30 MG; Start 07/14/18 at 16:00 Dutasteride (Avodart) 0.5 mg DAILY PO Last administered on 07/16/18 09:08; Admin Dose 0.5 MG; Start 07/14/18 at 16:00 Furosemide (Lasix) 20 mg BID DIURETICS PO Last administered on 07/16/18 05:09; Admin Dose 20 MG; Start 07/14/18 at 18:00 Labetalol HCl (Normodyne) 100 mg DAILY PO Last administered on 07/16/18 09:08; Admin Dose 100 MG; Start 07/15/18 at 09:00 Levetiracetam (Keppra) 500 mg BID PO Last administered on 07/16/18 09:05; Admin Dose 500 MG; Start 07/14/18 at 21:00 Levothyroxine Sodium (Synthroid) 100 mcg BEFORE BREAKFAST PO Last administered on 07/16/18 09:07; Admin Dose 100 MCG; Start 07/15/18 at 07:00 Mycophenolate Sodium (Myfortic) 540 mg Q12 PO Last administered on 07/16/18 09:06; Admin Dose 540 MG; Start 07/14/18 at 21:00 Nifedipine (Procardia Xl) 60 mg Q24H PO Last administered on 07/16/18 16:35; Admin Dose 60 MG; Start 07/14/18 at 17:00 Nitroglycerin (Nitroglycerin (Sl Tab) 0.4 Mg) 0.4 tab Q4 PRN SL CHEST PAIN; Start 07/14/18 at 14:30 Potassium Chloride (Micro-K) 8 meq BID PO Last administered on 07/16/18 09:07; Admin Dose 8 MEQ; Start 07/14/18 at 21:00 Tacrolimus (Prograf) 0.5 mg Q12 PO Last administered on 07/16/18 09:07; Admin Dose 0.5 MG; Start 07/14/18 at 16:00 Tacrolimus (Prograf) 1 mg Q12 PO Last administered on 07/16/18 09:07; Admin Dose 1 MG; Start 07/14/18 at 16:00 Epoetin Talat (Epogen (Esrd)) 4,000 units MoWeFr@17 SC ; Start 07/14/18 at 17:00 Heparin Sodium (Porcine) (Heparin (5000 Units/1ml)) 5,000 unit BID SC Last administered on 07/16/18 09:07; Admin Dose 5,000 UNIT; Start 07/14/18 at 21:00 Tramadol HCl (Ultram) 50 mg Q6H PRN PO MODERATE PAIN LEVEL 4-6; Start 07/14/18 at 16:30 HUA HERRERA MD Jul 16, 2018 17:13
[2018-07-16 19:18] VITALS: BP 158/74; PULSE 51; RESP 18
[2018-07-16] MEDS: ATORVASTATIN 20 MG TAB PO SCH (21:06)
[2018-07-17] VITALS (19 sets, daily range): BP systolic 111–171; BP diastolic 68–89; PULSE 48–58; RESP 18–20
[2018-07-17] MEDS: morphine 2 MG INJ IV PRN ×3 (02:42→15:10)
[2018-07-17] MEDS: LEVOTHYROXINE 100 MCG TAB PO SCH (06:26)
[2018-07-17] MEDS: PANTOPRAZOLE (EC) 40 MG TAB PO SCH (06:26)
[2018-07-17] MEDS: FUROSEMIDE 20 MG TAB PO SCH ×2 (06:27→18:13)
[2018-07-17] MEDS: DOCUSATE SODIUM 100 MG CAP PO SCH ×3 (09:30→20:41)
[2018-07-17] MEDS: LEVETIRACETAM 500 MG TAB PO SCH ×4 (09:30→20:03)
[2018-07-17] MEDS: TACROLIMUS 1 MG CAP PO SCH ×3 (09:30→20:41)
[2018-07-17] MEDS: TACROLIMUS 0.5 MG CAP PO SCH ×3 (09:30→20:40)
[2018-07-17] MEDS: DUTASTERIDE 0.5 MG CAP PO SCH ×2 (09:31→10:07)
[2018-07-17] MEDS: ASPIRIN (EC) 81 MG TAB PO SCH ×2 (09:31→10:07)
[2018-07-17] MEDS: DULOXETINE 30 MG CAP DR PO SCH ×2 (09:31→10:07)
[2018-07-17] MEDS: MYCOPHENOLATE (SR) 180 MG TAB PO SCH ×3 (09:31→20:41)
[2018-07-17] MEDS: POTASSIUM CHLORIDE (SR) 8 MEQ CAP PO SCH ×2 (09:31→10:07)
[2018-07-17] MEDS: HEPARIN 5,000 UNIT/1 ML VIAL SC SCH ×3 (09:34→20:48)
[2018-07-17] MEDS: LABETALOL 100 MG TAB PO SCH (10:07)
[2018-07-17] MEDS: HEPARIN 1000 UNITS/ML 10 ML INJ CATHETER SCH (14:02)
--- NOTE | 2018-07-17 14:22 | PN ---
Date/Time of Note Date/Time of Note DATE: 07/17/18 TIME: 14:19 Assessment/Plan VTE Prophylaxis Risk score (from Ns)>0 risk: 2 SCD applied (from Ns): No SCD contraindicated: low risk/ambulating Pharmacological prophylaxis: NA/contraindicated Pharm contraindication: low risk/ambulating Lines/Catheters IV C[facility]ter Type (from [facility]): Saline Lock Urinary Cath still in place: No Assessment/Plan Hospital Course ospital Course 1. S/p ground fall, left hip pain. Per CT scan of pelvis negative fractures, left hip Xray is negative. Pain is not controlled by meds 2. htn 3. History of kidney and pancreatic transplant, on Tacrolimus. 4. ESRD on HD MWFr 5. Hypertension. 6. Macrocytic normochromic anemia. 7. Peripheral vascular disease, status post left popliteal bypass on 12/02/2017. 8. Right foot partial amputation. 9. Skin cancer with right hand malignant lesion. 10. Diabetes mellitus type II 11. Hypothyroidism 12. Depression 13. CAD 14. Adrenal insufficiency 15. dyslipidemia 16. 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 Pain in the left leg Patient is somewhat sleepy Exam/Review of Systems Exam Vitals Vital Signs Date Temp Pulse Resp B/P (MAP) Pulse Ox O2 O2 Flow FiO2 Time Delivery Rate 07/17/18 58 13:58 07/17/18 18 130/69 98 Room Air 10:43 (89) 07/17/18 98.0 07:43 Intake and Output 07/16/18 07/16/18 07/17/18 1414:59 22:59 06:59 IntakeIntake Total 660 ml 290 ml OutputOutput Total 575 ml 180 ml BalanceBalance 85 ml 110 ml Exam Neck: supple Respiratory: clear to auscultation Cardiovascular: regular rate and rhythm Gastrointestinal: soft, bowel sounds Musculoskeletal: joint tenderness Skin: ecchymosis (+left hip) Medications Medication Current Medications Acetaminophen (Tylenol Tab) 650 mg Q6H PRN PO MILD PAIN(1-3)OR ELEVATED TEMP; Start 07/14/18 at 09:00 Ondansetron HCl (Zofran Inj) 4 mg Q6H PRN IV NAUSEA AND/OR VOMITING; Start 07/14/18 at 09:00 Morphine Sulfate (morphine) 2 mg Q4H PRN IV SEVERE PAIN LEVEL 7-10 Last administered on 07/17/18 06:27; Admin Dose 2 MG; Start 07/14/18 at 09:00 Hydralazine HCl (Apresoline) 10 mg Q6H PRN IV SBP GREATER THAN 170; Start 07/14/18 at 09:00 Glucose (Glutose) 15 gm Q15M PRN PO DECREASED GLUCOSE; Start 07/14/18 at 09:30 Glucose (Glutose) 22.5 gm Q15M PRN PO DECREASED GLUCOSE; Start 07/14/18 at 09:30 Dextrose (D50w Syringe) 50 ml Q15M PRN IV DECREASED GLUCOSE; Start 07/14/18 at 09:30 Pantoprazole (Protonix Tab) 40 mg DAILY@06 PO Last administered on 07/17/18 06:26; Admin Dose 40 MG; Start 07/15/18 at 06:00 Aspirin (Halfprin) 81 mg DAILY PO Last administered on 07/17/18 10:07; Admin Dose 81 MG; Start 07/14/18 at 16:00 Atorvastatin Calcium (Lipitor) 20 mg QHS PO Last administered on 07/16/18 21:06; Admin Dose 20 MG; Start 07/14/18 at 21:00 Clonidine (Catapres) 0.1 mg BID PO Last administered on 07/16/18 21:08; Admin Dose 0.1 MG; Start 07/14/18 at 16:00 Docusate Sodium (Colace) 200 mg BID PO Last administered on 07/17/18 10:07; Admin Dose 200 MG; Start 07/14/18 at 16:00 Duloxetine HCl (Cymbalta) 30 mg DAILY PO Last administered on 07/17/18 10:07; Admin Dose 30 MG; Start 07/14/18 at 16:00 Dutasteride (Avodart) 0.5 mg DAILY PO Last administered on 07/17/18 10:07; Admin Dose 0.5 MG; Start 07/14/18 at 16:00 Furosemide (Lasix) 20 mg BID DIURETICS PO Last administered on 07/17/18 06:27; Admin Dose 20 MG; Start 07/14/18 at 18:00 Labetalol HCl (Normodyne) 100 mg DAILY PO Last administered on 07/16/18 09:08; Admin Dose 100 MG; Start 07/15/18 at 09:00 Levetiracetam (Keppra) 500 mg BID PO Last administered on 07/17/18 10:07; Admin Dose 500 MG; Start 07/14/18 at 21:00 Levothyroxine Sodium (Synthroid) 100 mcg BEFORE BREAKFAST PO Last administered on 07/17/18 06:26; Admin Dose 100 MCG; Start 07/15/18 at 07:00 Mycophenolate Sodium (Myfortic) 540 mg Q12 PO Last administered on 07/17/18 10:06; Admin Dose 540 MG; Start 07/14/18 at 21:00 Nifedipine (Procardia Xl) 60 mg Q24H PO Last administered on 07/16/18 16:35; Admin Dose 60 MG; Start 07/14/18 at 17:00 Nitroglycerin (Nitroglycerin (Sl Tab) 0.4 Mg) 0.4 tab Q4 PRN SL CHEST PAIN; Start 07/14/18 at 14:30 Potassium Chloride (Micro-K) 8 meq BID PO Last administered on 07/17/18 10:07; Admin Dose 8 MEQ; Start 07/14/18 at 21:00 Tacrolimus (Prograf) 0.5 mg Q12 PO Last administered on 07/17/18 10:08; Admin Dose 0.5 MG; Start 07/14/18 at 16:00 Tacrolimus (Prograf) 1 mg Q12 PO Last administered on 07/17/18 10:06; Admin Dose 1 MG; Start 07/14/18 at 16:00 Epoetin Talat (Epogen (Esrd)) 4,000 units MoWeFr@17 SC ; Start 07/14/18 at 17:00 Heparin Sodium (Porcine) (Heparin (5000 Units/1ml)) 5,000 unit BID SC Last administered on 07/17/18 10:10; Admin Dose 5,000 UNIT; Start 07/14/18 at 21:00 Tramadol HCl (Ultram) 50 mg Q6H PRN PO MODERATE PAIN LEVEL 4-6; Start 07/14/18 at 16:30 Heparin Sodium (Porcine) (Heparin (1000 Units/ml)) 5,100 unit AFTER DIALYSIS CATHETER Last administered on 07/17/18at 14:02; Admin Dose 5,100 UNIT; Start 07/17/18 at 11:30 Docusate Sodium (Colace) 100 mg BID PRN PO CONSTIPATION; Start 07/17/18 at 14:30; Status UNV Polyethylene Glycol (Miralax) 17 gm DAILY PRN PO CONSTIPATION; Start 07/17/18 at 14:30; Status UNV JEVON MANCILLA MD Jul 17, 2018 14:22
[2018-07-17] MEDS ORDERED: DOCUSATE SODIUM 100 MG CAP PO PRN (14:30)
[2018-07-17] MEDS ORDERED: POLYETHYLENE GLYCOL 17 GM PACKET PO PRN (14:30)
[2018-07-17] MEDS: NIFEdipine (XL) 60 MG TAB PO SCH (18:13)
[2018-07-17] MEDS: EPOETIN 4000 UNITS/1 ML INJ (ESRD) SC SCH (18:48)
[2018-07-17] MEDS: ATORVASTATIN 20 MG TAB PO SCH (20:40)
[2018-07-17] MEDS: traMADol 50 MG TAB PO PRN (20:40)
[2018-07-17] MEDS: hydrALAzine 20 MG INJ IV PRN (20:40)
[2018-07-18 01:41] VITALS: BP 128/78; PULSE 61; RESP 18
[2018-07-18] MEDS: LEVOTHYROXINE 100 MCG TAB PO SCH (06:16)
[2018-07-18] MEDS: PANTOPRAZOLE (EC) 40 MG TAB PO SCH (06:17)
[2018-07-18] MEDS: traMADol 50 MG TAB PO PRN (06:17)
[2018-07-18] MEDS: FUROSEMIDE 20 MG TAB PO SCH ×2 (06:17→17:39)
[2018-07-18 07:49] VITALS: BP 132/77; PULSE 58; RESP 20
[2018-07-18] MEDS: DULOXETINE 30 MG CAP DR PO SCH (08:50)
[2018-07-18] MEDS: MYCOPHENOLATE (SR) 180 MG TAB PO SCH ×2 (08:50→21:27)
[2018-07-18] MEDS: DOCUSATE SODIUM 100 MG CAP PO SCH ×2 (08:51→21:27)
[2018-07-18] MEDS: ASPIRIN (EC) 81 MG TAB PO SCH (08:51)
[2018-07-18] MEDS: TACROLIMUS 0.5 MG CAP PO SCH ×2 (08:51→21:27)
[2018-07-18] MEDS: TACROLIMUS 1 MG CAP PO SCH ×2 (08:51→21:26)
[2018-07-18] MEDS: DUTASTERIDE 0.5 MG CAP PO SCH (08:51)
[2018-07-18] MEDS: LEVETIRACETAM 500 MG TAB PO SCH ×2 (08:51→21:27)
[2018-07-18] MEDS: HEPARIN 5,000 UNIT/1 ML VIAL SC SCH ×2 (08:58→21:41)
[2018-07-18 13:52] VITALS: BP 133/61; PULSE 59; RESP 20
--- NOTE | 2018-07-18 14:17 | PN ---
Date/Time of Note Date/Time of Note DATE: 07/18/18 TIME: 14:16 Assessment/Plan VTE Prophylaxis Risk score (from Nsg)>0 risk: 4 SCD applied (from Ns): No SCD contraindicated: low risk/ambulating Pharmacological prophylaxis: NA/contraindicated Pharm contraindication: low risk/ambulating Lines/Catheters IV Catheter Type (from Nrs): Saline Lock Urinary Cath still in place: No Assessment/Plan Hospital Course ospital Course 1. S/p ground fall, left hip pain. Per CT scan of pelvis negative fractures, left hip Xray is negative. Pain is not controlled by meds 2. htn 3. History of kidney and pancreatic transplant, on Tacrolimus. 4. ESRD on HD MWFr 5. Hypertension. 6. Macrocytic normochromic anemia. 7. Peripheral vascular disease, status post left popliteal bypass on 12/02/2017. 8. Right foot partial amputation. 9. Skin cancer with right hand malignant lesion. 10. Diabetes mellitus type II 11. Hypothyroidism 12. Depression 13. CAD 14. Adrenal insufficiency 15. dyslipidemia 16. Bradycardia, asymptomatic Plan - hd MWF -Continue with Ultram for pain -Continue with Myfortic/Prograft, status post renal/Pancreas transplant failed now on HD -PT eval> Will need SNIF -CW with nifedipine/Lasix/ -Hold labetalol due to bradycardia Result Diagram: 07/16/18 0547 07/16/18 0547 Subjective 24 Hr Interval Summary Free Text/Dictation he feels weak. unable to lift the left leg, Per PT patient is a high fall risk Exam/Review of Systems Exam Vitals Vital Signs Date Temp Pulse Resp B/P (MAP) Pulse Ox O2 O2 Flow FiO2 Time Delivery Rate 07/18/18 98.3 59 20 133/61 97 13:52 (85) 07/17/18 Room Air 10:43 Intake and Output 07/17/18 07/17/18 07/18/18 1515:00 23:00 07:00 IntakeIntake Total 240 ml 660 ml OutputOutput Total 2675 ml 200 ml 400 ml BalanceBalance -2435 ml 460 ml -400 ml Exam Neck: supple Respiratory: clear to auscultation Cardiovascular: regular rate and rhythm Gastrointestinal: soft, bowel sounds Musculoskeletal: joint tenderness Skin: ecchymosis (+left hip) Medications Medication Current Medications Acetaminophen (Tylenol Tab) 650 mg Q6H PRN PO MILD PAIN(1-3)OR ELEVATED TEMP; Start 07/14/18 at 09:00 Ondansetron HCl (Zofran Inj) 4 mg Q6H PRN IV NAUSEA AND/OR VOMITING; Start 07/14/18 at 09:00 Hydralazine HCl (Apresoline) 10 mg Q6H PRN IV SBP GREATER THAN 170 Last administered on 07/17/18 20:40; Admin Dose 10 MG; Start 07/14/18 at 09:00 Glucose (Glutose) 15 gm Q15M PRN PO DECREASED GLUCOSE; Start 07/14/18 at 09:30 Glucose (Glutose) 22.5 gm Q15M PRN PO DECREASED GLUCOSE; Start 07/14/18 at 09:30 Dextrose (D50w Syringe) 50 ml Q15M PRN IV DECREASED GLUCOSE; Start 07/14/18 at 09:30 Pantoprazole (Protonix Tab) 40 mg DAILY@06 PO Last administered on 07/18/18 06:17; Admin Dose 40 MG; Start 07/15/18 at 06:00 Aspirin (Halfprin) 81 mg DAILY PO Last administered on 07/18/18 08:51; Admin Dose 81 MG; Start 07/14/18 at 16:00 Atorvastatin Calcium (Lipitor) 20 mg QHS PO Last administered on 07/17/18 20:40; Admin Dose 20 MG; Start 07/14/18 at 21:00 Docusate Sodium (Colace) 200 mg BID PO Last administered on 07/18/18 08:51; Admin Dose 200 MG; Start 07/14/18 at 16:00 Duloxetine HCl (Cymbalta) 30 mg DAILY PO Last administered on 07/18/18 08:50; Admin Dose 30 MG; Start 07/14/18 at 16:00 Dutasteride (Avodart) 0.5 mg DAILY PO Last administered on 07/18/18 08:51; Admin Dose 0.5 MG; Start 07/14/18 at 16:00 Furosemide (Lasix) 20 mg BID DIURETICS PO Last administered on 07/18/18 06:17; Admin Dose 20 MG; Start 07/14/18 at 18:00 Levetiracetam (Keppra) 500 mg BID PO Last administered on 07/18/18 08:51; Admin Dose 500 MG; Start 07/14/18 at 21:00 Levothyroxine Sodium (Synthroid) 100 mcg BEFORE BREAKFAST PO Last administered on 07/18/18 06:16; Admin Dose 100 MCG; Start 07/15/18 at 07:00 Mycophenolate Sodium (Myfortic) 540 mg Q12 PO Last administered on 07/18/18 08:50; Admin Dose 540 MG; Start 07/14/18 at 21:00 Nifedipine (Procardia Xl) 60 mg Q24H PO Last administered on 07/17/18 18:13; Admin Dose 60 MG; Start 07/14/18 at 17:00 Nitroglycerin (Nitroglycerin (Sl Tab) 0.4 Mg) 0.4 tab Q4 PRN SL CHEST PAIN; Start 07/14/18 at 14:30 Tacrolimus (Prograf) 0.5 mg Q12 PO Last administered on 07/18/18 08:51; Admin Dose 0.5 MG; Start 07/14/18 at 16:00 Tacrolimus (Prograf) 1 mg Q12 PO Last administered on 07/18/18 08:51; Admin Dose 1 MG; Start 07/14/18 at 16:00 Epoetin Talat (Epogen (Esrd)) 4,000 units MoWeFr@17 SC Last administered on 07/17/18 18:48; Admin Dose 4,000 UNITS; Start 07/14/18 at 17:00 Heparin Sodium (Porcine) (Heparin (5000 Units/1ml)) 5,000 unit BID SC Last administered on 07/18/18 08:58; Admin Dose 5,000 UNIT; Start 07/14/18 at 21:00 Tramadol HCl (Ultram) 50 mg Q6H PRN PO MODERATE PAIN LEVEL 4-6 Last administered on 07/18/18 06:17; Admin Dose 50 MG; Start 07/14/18 at 16:30 Heparin Sodium (Porcine) (Heparin (1000 Units/ml)) 5,100 unit AFTER DIALYSIS CATHETER Last administered on 07/17/18 14:02; Admin Dose 5,100 UNIT; Start 07/17/18 at 11:30 Docusate Sodium (Colace) 100 mg BID PRN PO CONSTIPATION; Start 07/17/18 at 14:30 Polyethylene Glycol (Miralax) 17 gm DAILY PRN PO CONSTIPATION; Start 07/17/18 at 14:30 Morphine Sulfate (morphine) 2 mg Q6H PRN IV SEVERE PAIN LEVEL 7-10 Last administered on 07/17/18at 15:10; Admin Dose 2 MG; Start 07/17/18 at 14:30 Clonidine (Catapres) 0.1 mg DAILY PO Last administered on 07/18/18at 08:51; A dmin Dose 0.1 MG; Start 07/18/18 at 09:00 JEVON MANCILLA MD Jul 18, 2018 14:17
[2018-07-18] MEDS: NIFEdipine (XL) 60 MG TAB PO SCH (17:40)
[2018-07-18 18:22] VITALS: BP 170/85
[2018-07-18 20:03] VITALS: BP 168/81; PULSE 57; RESP 18
[2018-07-18] MEDS: ATORVASTATIN 20 MG TAB PO SCH (21:27)
[2018-07-18] MEDS: morphine 2 MG INJ IV PRN (21:29)
[2018-07-19] VITALS (18 sets, daily range): BP systolic 104–180; BP diastolic 59–86; PULSE 51–62; RESP 16–18
[2018-07-19] MEDS: PANTOPRAZOLE (EC) 40 MG TAB PO SCH (06:12)
[2018-07-19] MEDS: FUROSEMIDE 20 MG TAB PO SCH ×2 (06:12→18:03)
[2018-07-19] MEDS: traMADol 50 MG TAB PO PRN (06:12)
[2018-07-19] MEDS: LEVOTHYROXINE 100 MCG TAB PO SCH (06:12)
[2018-07-19] MEDS: DOCUSATE SODIUM 100 MG CAP PO SCH ×2 (08:39→20:05)
[2018-07-19] MEDS: LEVETIRACETAM 500 MG TAB PO SCH ×2 (08:40→20:06)
[2018-07-19] MEDS: TACROLIMUS 1 MG CAP PO SCH ×2 (08:40→20:06)
[2018-07-19] MEDS: TACROLIMUS 0.5 MG CAP PO SCH ×2 (08:40→20:06)
[2018-07-19] MEDS: ASPIRIN (EC) 81 MG TAB PO SCH (08:40)
[2018-07-19] MEDS: MYCOPHENOLATE (SR) 180 MG TAB PO SCH ×2 (08:40→20:06)
[2018-07-19] MEDS: DUTASTERIDE 0.5 MG CAP PO SCH (08:40)
[2018-07-19] MEDS: DULOXETINE 30 MG CAP DR PO SCH (08:41)
[2018-07-19] MEDS: HEPARIN 5,000 UNIT/1 ML VIAL SC SCH ×2 (08:46→20:07)
--- NOTE | 2018-07-19 11:34 | PN ---
Date/Time of Note Date/Time of Note DATE: 07/19/18 TIME: 11:33 Assessment/Plan VTE Prophylaxis Risk score (from Nsg)>0 risk: 4 SCD applied (from Ns): No SCD contraindicated: low risk/ambulating Pharmacological prophylaxis: NA/contraindicated Pharm contraindication: low risk/ambulating Lines/Catheters IV Catheter Type (from Nrsg): JUSTIN CATH Urinary Cath still in place: No Assessment/Plan Hospital Course ospital Course 1. S/p ground fall, left hip pain. Per CT scan of pelvis negative fractures, left hip Xray is negative. Pain is not controlled by meds 2. htn 3. History of kidney and pancreatic transplant, on Tacrolimus. 4. ESRD on HD MWFr 5. Hypertension. 6. Macrocytic normochromic anemia. 7. Peripheral vascular disease, status post left popliteal bypass on 12/02/2017. 8. Right foot partial amputation. 9. Skin cancer with right hand malignant lesion. 10. Diabetes mellitus type II 11. Hypothyroidism 12. Depression 13. CAD 14. Adrenal insufficiency 15. dyslipidemia 16. Bradycardia, asymptomatic Plan - hd MWF -Continue with Ultram for pain, morphine to Percocet -Continue with Myfortic/Prograft, status post renal/Pancreas transplant failed now on HD -PT eval> Will need SNIF -CW with nifedipine/Lasix -Hold labetalol due to bradycardia -Taper off clonidine also Result Diagram: 07/16/18 0547 07/16/18 0547 Subjective 24 Hr Interval Summary Free Text/Dictation Patient has been sleepy hd in progress Exam/Review of Systems Exam Vitals Vital Signs Date Temp Pulse Resp B/P (MAP) Pulse Ox O2 O2 Flow FiO2 Time Delivery Rate 07/19/18 97.8 57 16 153/83 99 07:27 (106) 07/17/18 Room Air 10:43 Intake and Output 07/18/18 07/18/18 07/19/18 1414:59 22:59 06:59 IntakeIntake Total 480 ml 240 ml 240 ml OutputOutput Total 725 ml 175 ml 600 ml BalanceBalance -245 ml 65 ml -360 ml Exam Exam Neck: supple Respiratory: clear to auscultation Cardiovascular: regular rate and rhythm Gastrointestinal: soft, bowel sounds Musculoskeletal: joint tenderness Skin: ecchymosis (+left hip) Medications Medication Current Medications Acetaminophen (Tylenol Tab) 650 mg Q6H PRN PO MILD PAIN(1-3)OR ELEVATED TEMP; Start 07/14/18 at 09:00 Ondansetron HCl (Zofran Inj) 4 mg Q6H PRN IV NAUSEA AND/OR VOMITING; Start 07/14/18 at 09:00 Hydralazine HCl (Apresoline) 10 mg Q6H PRN IV SBP GREATER THAN 170 Last administered on 07/17/18 20:40; Admin Dose 10 MG; Start 07/14/18 at 09:00 Glucose (Glutose) 15 gm Q15M PRN PO DECREASED GLUCOSE; Start 07/14/18 at 09:30 Glucose (Glutose) 22.5 gm Q15M PRN PO DECREASED GLUCOSE; Start 07/14/18 at 09:30 Dextrose (D50w Syringe) 50 ml Q15M PRN IV DECREASED GLUCOSE; Start 07/14/18 at 09:30 Pantoprazole (Protonix Tab) 40 mg DAILY@06 PO Last administered on 07/19/18 06:12; Admin Dose 40 MG; Start 07/15/18 at 06:00 Aspirin (Halfprin) 81 mg DAILY PO Last administered on 07/19/18 08:40; Admin Dose 81 MG; Start 07/14/18 at 16:00 Atorvastatin Calcium (Lipitor) 20 mg QHS PO Last administered on 07/18/18 21:27; Admin Dose 20 MG; Start 07/14/18 at 21:00 Docusate Sodium (Colace) 200 mg BID PO Last administered on 07/19/18 08:39; Admin Dose 200 MG; Start 07/14/18 at 16:00 Duloxetine HCl (Cymbalta) 30 mg DAILY PO Last administered on 07/19/18 08:41; Admin Dose 30 MG; Start 07/14/18 at 16:00 Dutasteride (Avodart) 0.5 mg DAILY PO Last administered on 07/19/18 08:40; Admin Dose 0.5 MG; Start 07/14/18 at 16:00 Furosemide (Lasix) 20 mg BID DIURETICS PO Last administered on 07/19/18 06:12; Admin Dose 20 MG; Start 07/14/18 at 18:00 Levetiracetam (Keppra) 500 mg BID PO Last administered on 07/19/18 08:40; Admin Dose 500 MG; Start 07/14/18 at 21:00 Levothyroxine Sodium (Synthroid) 100 mcg BEFORE BREAKFAST PO Last administered on 07/19/18 06:12; Admin Dose 100 MCG; Start 07/15/18 at 07:00 Mycophenolate Sodium (Myfortic) 540 mg Q12 PO Last administered on 07/19/18 08:40; Admin Dose 540 MG; Start 07/14/18 at 21:00 Nifedipine (Procardia Xl) 60 mg Q24H PO Last administered on 07/18/18 17:40; Admin Dose 60 MG; Start 07/14/18 at 17:00 Nitroglycerin (Nitroglycerin (Sl Tab) 0.4 Mg) 0.4 tab Q4 PRN SL CHEST PAIN; Start 07/14/18 at 14:30 Tacrolimus (Prograf) 0.5 mg Q12 PO Last administered on 07/19/18 08:40; Admin Dose 0.5 MG; Start 07/14/18 at 16:00 Tacrolimus (Prograf) 1 mg Q12 PO Last administered on 07/19/18 08:40; Admin Dose 1 MG; Start 07/14/18 at 16:00 Epoetin Talat (Epogen (Esrd)) 4,000 units MoWeFr@17 SC Last administered on 07/17/18 18:48; Admin Dose 4,000 UNITS; Start 07/14/18 at 17:00 Heparin Sodium (Porcine) (Heparin (5000 Units/1ml)) 5,000 unit BID SC Last administered on 07/19/18 08:46; Admin Dose 5,000 UNIT; Start 07/14/18 at 21:00 Tramadol HCl (Ultram) 50 mg Q6H PRN PO MODERATE PAIN LEVEL 4-6 Last administered on 07/19/18 06:12; Admin Dose 50 MG; Start 07/14/18 at 16:30 Heparin Sodium (Porcine) (Heparin (1000 Units/ml)) 5,100 unit AFTER DIALYSIS CATHETER Last administered on 07/17/18 14:02; Admin Dose 5,100 UNIT; Start 07/17/18 at 11:30 Polyethylene Glycol (Miralax) 17 gm DAILY PRN PO CONSTIPATION; Start 07/17/18 at 14:30 Clonidine (Catapres) 0.1 mg DAILY PO Last administered on 07/18/18at 08:51; Admin Dose 0.1 MG; Start 07/18/18 at 09:00 Oxycodone/ Acetaminophen (Percocet (5/ 325)) 1 tab Q4H PRN PO MODERATE PAIN LEVEL 4-6; Start 07/19/18 at 11:30; Status UNJEVON FLANNERY MD Jul 19, 2018 11:34
[2018-07-19] MEDS: HEPARIN 1000 UNITS/ML 10 ML INJ CATHETER SCH (14:23)
[2018-07-19] MEDS ORDERED: BUPIVACAINE 0.5%/EPI (SDV) 30 ML INJ INJ ONE ×2 (17:30→21:30)
[2018-07-19] MEDS ORDERED: BETAMET NA PHOS/AC(6 MG/ML) 2 ML INJ SYG IM ONE (17:30)
[2018-07-19] MEDS: EPOETIN 4000 UNITS/1 ML INJ (ESRD) SC SCH (18:05)
[2018-07-19] MEDS: hydrALAzine 20 MG INJ IV PRN (18:12)
[2018-07-19] MEDS: OXYCODONE/ACETAMINOPHEN (5/325) TAB PO PRN (18:13)
[2018-07-19] MEDS: ATORVASTATIN 20 MG TAB PO SCH (20:07)
[2018-07-19] MEDS ORDERED: BETAMET NA PHOS/AC(6 MG/ML) 5ML INJ INJ ONE (21:30)
[2018-07-20 01:28] VITALS: BP 168/85; PULSE 63; RESP 18
[2018-07-20] MEDS: PANTOPRAZOLE (EC) 40 MG TAB PO SCH (06:33)
[2018-07-20] MEDS: FUROSEMIDE 20 MG TAB PO SCH ×2 (06:34→18:01)
[2018-07-20] MEDS: OXYCODONE/ACETAMINOPHEN (5/325) TAB PO PRN ×2 (06:36→15:02)
[2018-07-20] MEDS: LEVOTHYROXINE 100 MCG TAB PO SCH (06:36)
[2018-07-20] MEDS: DOCUSATE SODIUM 100 MG CAP PO SCH ×2 (09:49→20:56)
[2018-07-20] MEDS: ASPIRIN (EC) 81 MG TAB PO SCH (09:49)
[2018-07-20] MEDS: DUTASTERIDE 0.5 MG CAP PO SCH (09:49)
[2018-07-20] MEDS: TACROLIMUS 1 MG CAP PO SCH ×2 (09:49→20:57)
[2018-07-20] MEDS: LEVETIRACETAM 500 MG TAB PO SCH ×2 (09:49→20:57)
[2018-07-20] MEDS: TACROLIMUS 0.5 MG CAP PO SCH ×2 (09:49→20:57)
[2018-07-20] MEDS: MYCOPHENOLATE (SR) 180 MG TAB PO SCH ×2 (09:50→20:54)
[2018-07-20] MEDS: DULOXETINE 30 MG CAP DR PO SCH (09:50)
[2018-07-20] MEDS: HEPARIN 5,000 UNIT/1 ML VIAL SC SCH ×2 (10:00→21:09)
[2018-07-20] MEDS ORDERED: AL HYDROX/MG HYDROX/SIMETH 30 ML CUP PO PRN (13:30)
--- NOTE | 2018-07-20 14:08 | PN ---
Date/Time of Note Date/Time of Note DATE: 07/20/18 TIME: 14:06 Assessment/Plan VTE Prophylaxis Risk score (from Nsg)>0 risk: 4 SCD applied (from Ns): No SCD contraindicated: low risk/ambulating Pharmacological prophylaxis: NA/contraindicated Pharm contraindication: low risk/ambulating Lines/Catheters IV Catheter Type (from Nrs): JUSTIN CATH Urinary Cath still in place: No Assessment/Plan Hospital Course ospital Course 1. S/p ground fall, left hip pain. Per CT scan of pelvis negative fractures, left hip Xray is negative. Pain is not controlled by meds 2. htn 3. History of kidney and pancreatic transplant, on Tacrolimus. 4. ESRD on HD MWFr 5. Hypertension. 6. Macrocytic normochromic anemia. 7. Peripheral vascular disease, status post left popliteal bypass on 12/02/2017. 8. Right foot partial amputation. 9. Skin cancer with right hand malignant lesion. 10. Diabetes mellitus type II 11. Hypothyroidism 12. Depression 13. CAD 14. Adrenal insufficiency 15. dyslipidemia 16. Bradycardia, asymptomatic Plan - hd MWF post HD yesterday -Continue with Ultram for pain, Percocet -Continue with Myfortic/Prograft, status post renal/Pancreas transplant failed now on HD -PT eval> Will need SNIF -CW with nifedipine/Lasix -Hold labetalol due to bradycardia -Restarted clonidine due to hypertension -dr martin came to see the patient/steroid injection Patient wants to go to [facility] spoke to onsite case manager, arranging for SNIF Result Diagram: 07/16/18 0547 07/16/18 0547 Subjective 24 Hr Interval Summary Free Text/Dictation Patient sitting in the bed today Requesting to go to [facility] Seen by Dr. Martin Exam/Review of Systems Exam Vitals Vital Signs Date Temp Pulse Resp B/P (MAP) Pulse Ox O2 O2 Flow FiO2 Time Delivery Rate 07/20/18 98.3 63 18 168/85 95 01:28 (112) 07/19/18 Room Air 14:20 Intake and Output 07/19/18 07/19/18 07/20/18 1515:00 23:00 07:00 IntakeIntake Total 560 ml 320 ml OutputOutput Total 2500 ml 400 ml BalanceBalance -1940 ml -80 ml Exam xam Neck: supple Respiratory: clear to auscultation Cardiovascular: regular rate and rhythm Gastrointestinal: soft, bowel sounds Musculoskeletal: joint tenderness Skin: ecchymosis (+left hip) Medications Medication Current Medications Acetaminophen (Tylenol Tab) 650 mg Q6H PRN PO MILD PAIN(1-3)OR ELEVATED TEMP; Start 07/14/18 at 09:00 Ondansetron HCl (Zofran Inj) 4 mg Q6H PRN IV NAUSEA AND/OR VOMITING Last adm inistered on 07/20/18 13:43; Admin Dose 4 MG; Start 07/14/18 at 09:00 Hydralazine HCl (Apresoline) 10 mg Q6H PRN IV SBP GREATER THAN 170 Last administered on 07/19/18 18:12; Admin Dose 10 MG; Start 07/14/18 at 09:00 Glucose (Glutose) 15 gm Q15M PRN PO DECREASED GLUCOSE; Start 07/14/18 at 09:30 Glucose (Glutose) 22.5 gm Q15M PRN PO DECREASED GLUCOSE; Start 07/14/18 at 09:30 Dextrose (D50w Syringe) 50 ml Q15M PRN IV DECREASED GLUCOSE; Start 07/14/18 at 09:30 Pantoprazole (Protonix Tab) 40 mg DAILY@06 PO Last administered on 07/20/18 06:33; Admin Dose 40 MG; Start 07/15/18 at 06:00 Aspirin (Halfprin) 81 mg DAILY PO Last administered on 07/20/18 09:49; Admin Dose 81 MG; Start 07/14/18 at 16:00 Atorvastatin Calcium (Lipitor) 20 mg QHS PO Last administered on 07/19/18 20:07; Admin Dose 20 MG; Start 07/14/18 at 21:00 Docusate Sodium (Colace) 200 mg BID PO Last administered on 07/20/18 09:49; Admin Dose 200 MG; Start 07/14/18 at 16:00 Duloxetine HCl (Cymbalta) 30 mg DAILY PO Last administered on 07/20/18 09:50; Admin Dose 30 MG; Start 07/14/18 at 16:00 Dutasteride (Avodart) 0.5 mg DAILY PO Last administered on 07/20/18 09:49; Admin Dose 0.5 MG; Start 07/14/18 at 16:00 Furosemide (Lasix) 20 mg BID DIURETICS PO Last administered on 07/20/18 06:34; Admin Dose 20 MG; Start 07/14/18 at 18:00 Levetiracetam (Keppra) 500 mg BID PO Last administered on 07/20/18 09:49; Admin Dose 500 MG; Start 07/14/18 at 21:00 Levothyroxine Sodium (Synthroid) 100 mcg BEFORE BREAKFAST PO Last administered on 07/20/18 06:36; Admin Dose 100 MCG; Start 07/15/18 at 07:00 Mycophenolate Sodium (Myfortic) 540 mg Q12 PO Last administered on 07/20/18 09:50; Admin Dose 540 MG; Start 07/14/18 at 21:00 Nitroglycerin (Nitroglycerin (Sl Tab) 0.4 Mg) 0.4 tab Q4 PRN SL CHEST PAIN; Start 07/14/18 at 14:30 Tacrolimus (Prograf) 0.5 mg Q12 PO Last administered on 07/20/18 09:49; Admin Dose 0.5 MG; Start 07/14/18 at 16:00 Tacrolimus (Prograf) 1 mg Q12 PO Last administered on 07/20/18 09:49; Admin Dose 1 MG; Start 07/14/18 at 16:00 Epoetin Talat (Epogen (Esrd)) 4,000 units MoWeFr@17 SC Last administered on 07/19/18 18:05; Admin Dose 4,000 UNITS; Start 07/14/18 at 17:00 Heparin Sodium (Porcine) (Heparin (5000 Units/1ml)) 5,000 unit BID SC Last administered on 07/20/18 10:00; Admin Dose 5,000 UNIT; Start 07/14/18 at 21:00 Tramadol HCl (Ultram) 50 mg Q6H PRN PO MODERATE PAIN LEVEL 4-6 Last administe red on 07/19/18 06:12; Admin Dose 50 MG; Start 07/14/18 at 16:30 Heparin Sodium (Porcine) (Heparin (1000 Units/ml)) 5,100 unit AFTER DIALYSIS CATHETER Last administered on 07/19/18 14:23; Admin Dose 5,100 UNIT; Start 07/17/18 at 11:30 Polyethylene Glycol (Miralax) 17 gm DAILY PRN PO CONSTIPATION; Start 07/17/18 at 14:30 Oxycodone/ Acetaminophen (Percocet (5/ 325)) 1 tab Q4H PRN PO MODERATE PAIN LEVEL 4-6 Last administered on 07/20/18at 06:36; Admin Dose 1 TAB; Start 07/19/18 at 11:30 Clonidine (Catapres) 0.1 mg TID PO Last administered on 07/20/18at 13:40; Admin Dose 0.1 MG; Start 07/19/18 at 21:00 Al Hydrox/Mg Hydrox/Simethicone (Mag-Al Plus) 30 ml Q6H PRN PO GASTROINTESTINAL UPSET Last administered on 07/20/18at 13:36; Admin Dose 30 ML; Start 07/20/18 at 13:30 JEVON MANCILLA MD Jul 20, 2018 14:08
[2018-07-20] MEDS ORDERED: HEPARIN 1000 UNITS/ML 10 ML INJ CATHETER SCH (14:30)
--- NOTE | 2018-07-20 19:13 | CONS ---
DATE OF ADMISSION: 07/14/2018 DATE OF CONSULTATION: 07/18/2018 ORTHOPEDIC SURGICAL CONSULTATION HISTORY OF PRESENT ILLNESS: The patient is a 53-year-old male who was admitted on 07/14/2018 when he came to the emergency room complaining of pain involving his left hip, which developed following his ground level fall, landing on his left buttock on the same day. Following his admission, various ra diologic studies were carried out including plain x-rays of the hip and CT scan of the hip; however, there were no obvious fracture or dislocation identified. He was initially seen by me around 07/16/2018. However, during my initial evaluation, he was less th an willing to participate in the history taking and physical examination, and he flatly denied any pa in involving his left hip. Initial evaluation, which is limited because of his unwillingness to part icipate, did not show any obvious local tenderness and the range of motion of the left hip was full a nd pain free. PAST HISTORY: He has a chronic kidney disease, on hemodialysis. 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 He has peripheral vascular disease, diabetes mellitus, BPH, d yslipidemia, and history of melanoma involving his right hand. He had a renal and pancreatic transpl ant in the past and had a left femoropopliteal bypass. PHYSICAL EXAMINATION: During my examination today, on 07/18/2018, he was more willing to participate in the physical exam, which revealed a tenderness localized over the lateral aspect of the left hip right above the trochanteric bursa. Again, the range of motion of the left hip was full and pain rory e except some mild discomfort over the lateral aspect of the left hip. DIAGNOSTIC STUDIES: X-rays of the left hip and CT scan of the left hip was again reviewed, and there were no signs of degenerative changes or fracture or dislocations. DIAGNOSTIC IMPRESSION: Trochanteric bursitis of the left hip, posttraumatic. RECOMMENDATIONS FOR TREATMENT: Steroid injection into the trochanteric bursa of the left hip, and th is will be done as soon as the injectable medication is available. Dictated By: RAMONA SAGASTUME/TANNER Conf#: [id number] DID#: [id number]
[2018-07-20] MEDS: hydrALAzine 20 MG INJ IV PRN (19:44)
[2018-07-20 20:01] VITALS: BP 171/89; PULSE 55; RESP 18
[2018-07-20] MEDS ORDERED: KETOROLAC 30 MG INJ IV STA (20:38)
[2018-07-20] MEDS: ATORVASTATIN 20 MG TAB PO SCH (20:56)
[2018-07-21] VITALS (18 sets, daily range): BP systolic 102–127; BP diastolic 58–80; PULSE 50–67; RESP 16–18
[2018-07-21] MEDS: LEVOTHYROXINE 100 MCG TAB PO SCH (07:00)
[2018-07-21] MEDS ORDERED: ACCU-CHEK XX SCH (07:00)
[2018-07-21] MEDS: FUROSEMIDE 20 MG TAB PO SCH ×2 (07:00→18:44)
[2018-07-21] MEDS: PANTOPRAZOLE (EC) 40 MG TAB PO SCH (07:00)
[2018-07-21] MEDS: traMADol 50 MG TAB PO PRN (07:43)
[2018-07-21] MEDS: ASPIRIN (EC) 81 MG TAB PO SCH (08:09)
[2018-07-21] MEDS: DUTASTERIDE 0.5 MG CAP PO SCH (08:10)
[2018-07-21] MEDS: TACROLIMUS 0.5 MG CAP PO SCH ×2 (08:10→21:30)
[2018-07-21] MEDS: LEVETIRACETAM 500 MG TAB PO SCH ×2 (08:10→21:30)
[2018-07-21] MEDS: TACROLIMUS 1 MG CAP PO SCH ×2 (08:10→21:30)
[2018-07-21] MEDS: DULOXETINE 30 MG CAP DR PO SCH (08:10)
[2018-07-21] MEDS: MYCOPHENOLATE (SR) 180 MG TAB PO SCH ×2 (08:10→21:29)
[2018-07-21] MEDS: DOCUSATE SODIUM 100 MG CAP PO SCH ×2 (08:10→21:30)
[2018-07-21] MEDS: HEPARIN 5,000 UNIT/1 ML VIAL SC SCH ×2 (08:12→21:32)
--- NOTE | 2018-07-21 12:43 | PN ---
Date/Time of Note Date/Time of Note DATE: 07/21/18 TIME: 12:38 Assessment/Plan VTE Prophylaxis Risk score (from Nsg)>0 risk: 5 SCD applied (from Nsg): No SCD contraindicated: other Pharmacological prophylaxis: heparin Lines/Catheters IV Catheter Type (from Nrsg): Central Line Central line still needed: Yes Urinary Cath still in place: No Assessment/Plan Hospital Course 1. S/p ground fall, left hip pain. Per CT scan of pelvis negative fractures, left hip Xray is negative. Pain is not controlled by meds 2. Bronchitis versus central peribronchial edema per chest Xray. Clinically clear. Sometimes it takes 72 hours to be seen on Xray. F/up chest Xray 3. History of kidney and pancreatic transplant, on Tacrolimus. 4. ESRD on HD MWFr 5. Hypertension. 6. Macrocytic normochromic anemia. 7. Peripheral vascular disease, status post left popliteal bypass on 12/02/2017. 8. Right foot partial amputation. 9. Skin cancer with right hand malignant lesion. 10. Diabetes mellitus type II 11. Hypothyroidism 12. Depression 13. CAD 14. Adrenal insufficiency 15. dyslipidemia 16. Bradycardia, asymptomatic 17. hyperkalemia Assessment/Plan - HD MWF post HD today -Continue with Ultram for pain, Percocet -Continue with Myfortic/Prograft, status post renal/Pancreas transplant failed now on HD -PT eval> Will need SNIF -CW with nifedipine/Lasix -Hold labetalol due to bradycardia -Restarted clonidine due to hypertension -dr Tariq came to see the patient/steroid injection -Patient wants to go to [facility] spoke to renal case manager, arranging for SNF Result Diagram: 07/21/18 0539 Results 24hrs Laboratory Tests Test 07/21/18 05:39 Sodium Level 140 Potassium Level 5.4 H Chloride Level 107 Carbon Dioxide Level 25 Anion Gap 8 Blood Urea Nitrogen 44 H Creatinine 2.35 H Est Glomerular Filtrat Rate mL/min 29 L Glucose Level 143 Calcium Level 9.5 Subjective 24 Hr Interval Summary Musculoskeletal: bone/joint pain (lrft hip) Exam/Review of Systems Exam Vitals Vital Signs Date Temp Pulse Resp B/P (MAP) Pulse Ox O2 O2 Flow FiO2 Time Delivery Rate 07/21/18 55 11:57 07/21/18 18 125/76 99 Room Air 10:12 (92) 07/21/18 98.2 07:22 Intake and Output 07/20/18 07/20/18 07/21/18 1515:00 23:00 07:00 IntakeIntake Total 960 ml OutputOutput Total 200 ml BalanceBalance 760 ml Exam right hip Perm cath Constitutional: alert, oriented Head: normocephalic Eyes: nl conjunctiva Neck: supple Respiratory: clear to auscultation Musculoskeletal: joint tenderness, range of motion (left hip full), other (right foot metotarsal amputation) Results Results 24hrs Laboratory Tests Test 07/21/18 05:39 Sodium Level 140 Potassium Level 5.4 H Chloride Level 107 Carbon Dioxide Level 25 Anion Gap 8 Blood Urea Nitrogen 44 H Creatinine 2.35 H Est Glomerular Filtrat Rate mL/min 29 L Glucose Level 143 Calcium Level 9.5 Medications Medication Current Medications Acetaminophen (Tylenol Tab) 650 mg Q6H PRN PO MILD PAIN(1-3)OR ELEVATED TEMP; Start 07/14/18 at 09:00 Ondansetron HCl (Zofran Inj) 4 mg Q6H PRN IV NAUSEA AND/OR VOMITING Last administered on 07/20/18at 13:43; Admin Dose 4 MG; Start 07/14/18 at 09:00 Hydralazine HCl (Apresoline) 10 mg Q6H PRN IV SBP GREATER THAN 170 Last administered on 07/20/18at 19:44; Admin Dose 10 MG; Start 07/14/18 at 09:00 Glucose (Glutose) 15 gm Q15M PRN PO DECREASED GLUCOSE; Start 07/14/18 at 09:30 Glucose (Glutose) 22.5 gm Q15M PRN PO DECREASED GLUCOSE; Start 07/14/18 at 09:30 Dextrose (D50w Syringe) 50 ml Q15M PRN IV DECREASED GLUCOSE; Start 07/14/18 at 09:30 Pantoprazole (Protonix Tab) 40 mg DAILY@06 PO Last administered on 07/21/18at 07:00; Admin Dose 40 MG; Start 07/15/18 at 06:00 Aspirin (Halfprin) 81 mg DAILY PO Last administered on 07/21/18at 08:09; Admin Dose 81 MG; Start 07/14/18 at 16:00 Atorvastatin Calcium (Lipitor) 20 mg QHS PO Last administered on 07/20/18 20:56; Admin Dose 20 MG; Start 07/14/18 at 21:00 Docusate Sodium (Colace) 200 mg BID PO Last administered on 07/21/18 08:10; Admin Dose 200 MG; Start 07/14/18 at 16:00 Duloxetine HCl (Cymbalta) 30 mg DAILY PO Last administered on 07/21/18 08:10; Admin Dose 30 MG; Start 07/14/18 at 16:00 Dutasteride (Avodart) 0.5 mg DAILY PO Last administered on 07/21/18 08:10; Admin Dose 0.5 MG; Start 07/14/18 at 16:00 Furosemide (Lasix) 20 mg BID DIURETICS PO Last administered on 07/21/18 07:00; Admin Dose 20 MG; Start 07/14/18 at 18:00 Levetiracetam (Keppra) 500 mg BID PO Last administered on 07/21/18 08:10; Admin Dose 500 MG; Start 07/14/18 at 21:00 Levothyroxine Sodium (Synthroid) 100 mcg BEFORE BREAKFAST PO Last administered on 07/21/18 07:00; Admin Dose 100 MCG; Start 07/15/18 at 07:00 Mycophenolate Sodium (Myfortic) 540 mg Q12 PO Last administered on 07/21/18 08:10; Admin Dose 540 MG; Start 07/14/18 at 21:00 Nitroglycerin (Nitroglycerin (Sl Tab) 0.4 Mg) 0.4 tab Q4 PRN SL CHEST PAIN; Start 07/14/18 at 14:30 Tacrolimus (Prograf) 0.5 mg Q12 PO Last administered on 07/21/18 08:10; Admin Dose 0.5 MG; Start 07/14/18 at 16:00 Tacrolimus (Prograf) 1 mg Q12 PO Last administered on 07/21/18 08:10; Admin Dose 1 MG; Start 07/14/18 at 16:00 Epoetin Talat (Epogen (Esrd)) 4,000 units MoWeFr@17 SC Last administered on 07/19/18 18:05; Admin Dose 4,000 UNITS; Start 07/14/18 at 17:00 Heparin Sodium (Porcine) (Heparin (5000 Units/1ml)) 5,000 unit BID SC Last administered on 07/21/18 08:12; Admin Dose 5,000 UNIT; Start 07/14/18 at 21:00 Tramadol HCl (Ultram) 50 mg Q6H PRN PO MODERATE PAIN LEVEL 4-6 Last administered on 07/21/18 07:43; Admin Dose 50 MG; Start 07/14/18 at 16:30 Polyethylene Glycol (Miralax) 17 gm DAILY PRN PO CONSTIPATION Last administered on 07/20/18 15:02; Admin Dose 17 GM; Start 07/17/18 at 14:30 Oxycodone/ Acetaminophen (Percocet (5/ 325)) 1 tab Q4H PRN PO MODERATE PAIN LEVEL 4-6 Last administered on 07/20/18 15:02; Admin Dose 1 TAB; Start 07/19/18 at 11:30 Clonidine (Catapres) 0.1 mg TID PO Last administered on 07/20/18 21:05; Admin Dose 0.1 MG; Start 07/19/18 at 21:00 Al Hydrox/Mg Hydrox/Simethicone (Mag-Al Plus) 30 ml Q6H PRN PO GASTROINTESTINAL UPSET Last administered on 07/20/18 13:36; Admin Dose 30 ML; Start 07/20/18 at 13:30 Heparin Sodium (Porcine) (Heparin (1000 Units/ml)) 4,000 unit AFTER DIALYSIS CATHETER ; Start 07/20/18 at 14:30 NIKI HASSAN 15, 2019 12:43
[2018-07-21] MEDS ORDERED: NA POLYST SULFON 15 GM/60 ML BTL PO ONE (13:00)
[2018-07-21] MEDS: EPOETIN 4000 UNITS/1 ML INJ (ESRD) SC SCH (18:45)
[2018-07-21] MEDS: ATORVASTATIN 20 MG TAB PO SCH (21:30)
[2018-07-22 01:30] VITALS: BP 110/54; PULSE 64; RESP 16
[2018-07-22] MEDS: FUROSEMIDE 20 MG TAB PO SCH (06:53)
[2018-07-22] MEDS: LEVOTHYROXINE 100 MCG TAB PO SCH (06:53)
[2018-07-22] MEDS: PANTOPRAZOLE (EC) 40 MG TAB PO SCH (06:53)
[2018-07-22 09:19] VITALS: BP 153/71; PULSE 56; RESP 18
[2018-07-22] MEDS: LEVETIRACETAM 500 MG TAB PO SCH (09:33)
[2018-07-22] MEDS: MYCOPHENOLATE (SR) 180 MG TAB PO SCH (09:33)
[2018-07-22] MEDS: TACROLIMUS 1 MG CAP PO SCH (09:33)
[2018-07-22] MEDS: DUTASTERIDE 0.5 MG CAP PO SCH (09:34)
[2018-07-22] MEDS: ASPIRIN (EC) 81 MG TAB PO SCH (09:34)
[2018-07-22] MEDS: DULOXETINE 30 MG CAP DR PO SCH (09:34)
[2018-07-22] MEDS: TACROLIMUS 0.5 MG CAP PO SCH (09:34)
[2018-07-22] MEDS: DOCUSATE SODIUM 100 MG CAP PO SCH (09:34)
[2018-07-22] MEDS: HEPARIN 5,000 UNIT/1 ML VIAL SC SCH (09:37)
--- NOTE | 2018-07-22 10:20 | PN ---
Date/Time of Note Date/Time of Note DATE: 07/22/18 TIME: 10:17 Assessment/Plan VTE Prophylaxis Risk score (from Ns)>0 risk: 5 SCD applied (from Ns): No SCD contraindicated: other Pharmacological prophylaxis: heparin Lines/Catheters IV [facility] peter cath Urinary Cath still in place: No Assessment/Plan Hospital Course 1. S/p ground fall, left hip pain, better. Per CT scan of pelvis negative fractures, left hip Xray is negative. 2. Bronchitis versus central peribronchial edema per chest Xray. Clinically clear. Sometimes it takes 72 hours to be seen on Xray. F/up chest Xray 3. History of kidney and pancreatic transplant, on Tacrolimus. 4. ESRD on HD MWFr 5. Hypertension. 6. Macrocytic normochromic anemia. 7. Peripheral vascular disease, status post left popliteal bypass on 12/02/2017. 8. Right foot partial amputation. 9. Skin cancer with right hand malignant lesion. 10. Diabetes mellitus type II 11. Hypothyroidism 12. Depression 13. CAD 14. Adrenal insufficiency 15. dyslipidemia 16. Bradycardia, asymptomatic Assessment/Plan - HD MWF -d/c Result Diagram: 07/22/18 0548 07/22/18 0548 Results 24hrs Laboratory Tests Test 07/22/18 05:48 White Blood Count 3.8 #L Red Blood Count 2.98 L Hemoglobin 9.0 L Hematocrit 29.4 L Mean Corpuscular Volume 98.7 Mean Corpuscular Hemoglobin 30.2 Mean Corpuscular Hemoglobin Concent 30.6 L Red Cell Distribution Width 17.8 H Platelet Count 269 Mean Platelet Volume 9.8 Immature Granulocytes % 1.300 H Neutrophils % 51.2 Lymphocytes % 29.0 Monocytes % 16.4 H Eosinophils % 1.6 Basophils % 0.5 Nucleated Red Blood Cells % 0.0 Immature Granulocytes # 0.050 H Neutrophils # 2.0 Lymphocytes # 1.1 Monocytes # 0.6 Eosinophils # 0.1 Basophils # 0.0 Nucleated Red Blood Cells # 0.0 Sodium Level 135 Potassium Level 4.0 Chloride Level 99 Carbon Dioxide Level 29 Anion Gap 7 Blood Urea Nitrogen 42 H Creatinine 2.27 H Est Glomerular Filtrat Rate mL/min 30 L Glucose Level 109 Calcium Level 8.8 Subjective 24 Hr Interval Summary Musculoskeletal: bone/joint pain (left hip less) Exam/Review of Systems Exam Vitals Vital Signs Date Temp Pulse Resp B/P (MAP) Pulse Ox O2 O2 Flow FiO2 Time Delivery Rate 07/22/18 98.3 56 18 153/71 100 Room Air 09:19 (98) Intake and Output 07/21/18 07/21/18 07/22/18 1515:00 23:00 07:00 IntakeIntake Total 600 ml OutputOutput Total 1600 ml 60 ml BalanceBalance -1600 ml 540 ml Exam right groin Permcath Constitutional: alert, oriented Psych: no complaints Neck: supple Cardiovascular: regular rate and rhythm Gastrointestinal: soft Genitourinary - Male: CVA tenderness; No nl penis, No nl scrotum, No discharge, No other Extremities: tenderness (left hip ) Results Results 24hrs Laboratory Tests Test 07/22/18 05:48 White Blood Count 3.8 #L Red Blood Count 2.98 L Hemoglobin 9.0 L Hematocrit 29.4 L Mean Corpuscular Volume 98.7 Mean Corpuscular Hemoglobin 30.2 Mean Corpuscular Hemoglobin Concent 30.6 L Red Cell Distribution Width 17.8 H Platelet Count 269 Mean Platelet Volume 9.8 Immature Granulocytes % 1.300 H Neutrophils % 51.2 Lymphocytes % 29.0 Monocytes % 16.4 H Eosinophils % 1.6 Basophils % 0.5 Nucleated Red Blood Cells % 0.0 Immature Granulocytes # 0.050 H Neutrophils # 2.0 Lymphocytes # 1.1 Monocytes # 0.6 Eosinophils # 0.1 Basophils # 0.0 Nucleated Red Blood Cells # 0.0 Sodium Level 135 Potassium Level 4.0 Chloride Level 99 Carbon Dioxide Level 29 Anion Gap 7 Blood Urea Nitrogen 42 H Creatinine 2.27 H Est Glomerular Filtrat Rate mL/min 30 L Glucose Level 109 Calcium Level 8.8 Medications Medication Current Medications Acetaminophen (Tylenol Tab) 650 mg Q6H PRN PO MILD PAIN(1-3)OR ELEVATED TEMP; Start 07/14/18 at 09:00 Ondansetron HCl (Zofran Inj) 4 mg Q6H PRN IV NAUSEA AND/OR VOMITING Last administered on 07/20/18at 13:43; Admin Dose 4 MG; Start 07/14/18 at 09:00 Hydralazine HCl (Apresoline) 10 mg Q6H PRN IV SBP GREATER THAN 170 Last administered on 07/20/18at 19:44; Admin Dose 10 MG; Start 07/14/18 at 09:00 Glucose (Glutose) 15 gm Q15M PRN PO DECREASED GLUCOSE; Start 07/14/18 at 09:30 Glucose (Glutose) 22.5 gm Q15M PRN PO DECREASED GLUCOSE; Start 07/14/18 at 09:30 Dextrose (D50w Syringe) 50 ml Q15M PRN IV DECREASED GLUCOSE; Start 07/14/18 at 09:30 Pantoprazole (Protonix Tab) 40 mg DAILY@06 PO Last administered on 07/22/18 06:53; Admin Dose 40 MG; Start 07/15/18 at 06:00 Aspirin (Halfprin) 81 mg DAILY PO Last administered on 07/22/18 09:34; Admin Dose 81 MG; Start 07/14/18 at 16:00 Atorvastatin Calcium (Lipitor) 20 mg QHS PO Last administered on 07/21/18 21:30; Admin Dose 20 MG; Start 07/14/18 at 21:00 Docusate Sodium (Colace) 200 mg BID PO Last administered on 07/22/18 09:34; Admin Dose 200 MG; Start 07/14/18 at 16:00 Duloxetine HCl (Cymbalta) 30 mg DAILY PO Last administered on 07/22/18 09:34; Admin Dose 30 MG; Start 07/14/18 at 16:00 Dutasteride (Avodart) 0.5 mg DAILY PO Last administered on 07/22/18 09:34; Admin Dose 0.5 MG; Start 07/14/18 at 16:00 Furosemide (Lasix) 20 mg BID DIURETICS PO Last administered on 07/22/18 06:53; Admin Dose 20 MG; Start 07/14/18 at 18:00 Levetiracetam (Keppra) 500 mg BID PO Last administered on 07/22/18 09:33; Adm in Dose 500 MG; Start 07/14/18 at 21:00 Levothyroxine Sodium (Synthroid) 100 mcg BEFORE BREAKFAST PO Last administered on 07/22/18 06:53; Admin Dose 100 MCG; Start 07/15/18 at 07:00 Mycophenolate Sodium (Myfortic) 540 mg Q12 PO Last administered on 07/22/18 09:33; Admin Dose 540 MG; Start 07/14/18 at 21:00 Nitroglycerin (Nitroglycerin (Sl Tab) 0.4 Mg) 0.4 tab Q4 PRN SL CHEST PAIN; Start 07/14/18 at 14:30 Tacrolimus (Prograf) 0.5 mg Q12 PO Last administered on 07/22/18 09:34; Admin Dose 0.5 MG; Start 07/14/18 at 16:00 Tacrolimus (Prograf) 1 mg Q12 PO Last administered on 07/22/18 09:33; Admin Dose 1 MG; Start 07/14/18 at 16:00 Epoetin Talat (Epogen (Esrd)) 4,000 units MoWeFr@17 SC Last administered on 07/21/18 18:45; Admin Dose 4,000 UNITS; Start 07/14/18 at 17:00 Heparin Sodium (Porcine) (Heparin (5000 Units/1ml)) 5,000 unit BID SC Last administered on 07/22/18 09:37; Admin Dose 5,000 UNIT; Start 07/14/18 at 21:00 Tramadol HCl (Ultram) 50 mg Q6H PRN PO MODERATE PAIN LEVEL 4-6 Last administered on 07/21/18 07:43; Admin Dose 50 MG; Start 07/14/18 at 16:30 Polyethylene Glycol (Miralax) 17 gm DAILY PRN PO CONSTIPATION Last administered on 07/20/18 15:02; Admin Dose 17 GM; Start 07/17/18 at 14:30 Oxycodone/ Acetaminophen (Percocet (5/ 325)) 1 tab Q4H PRN PO MODERATE PAIN LEV EL 4-6 Last administered on 07/20/18 15:02; Admin Dose 1 TAB; Start 07/19/18 at 11:30 Clonidine (Catapres) 0.1 mg TID PO Last administered on 07/22/18 09:33; Admin Dose 0.1 MG; Start 07/19/18 at 21:00 Al Hydrox/Mg Hydrox/Simethicone (Mag-Al Plus) 30 ml Q6H PRN PO GASTROINTESTINAL UPSET Last administered on 07/20/18 13:36; Admin Dose 30 ML; Start 07/20/18 at 13:30 Heparin Sodium (Porcine) (Heparin (1000 Units/ml)) 4,000 unit AFTER DIALYSIS CATHETER Last administered on 3/15/19at 13:32; Admin Dose 4,000 UNIT; Start 07/20/18 at 14:30 NIKI HASSAN 16, 2019 10:20
--- NOTE | 2018-07-22 10:47 | PDOCDIS ---
Discharge Instructions DIAGNOSIS Discharge Diagnosis left hip bursitis CONDITION [id number] Patient Condition: [id number] Stable HOME CARE INSTRUCTIONS: [id number] Special Diet: [id number] renal ACTIVITY: [id number] Activity Restrictions: [id number] Slowly Increase Activity Rest between Activity Avoid heavy lifting Avoid Heavy Housework FOLLOW UP/APPOINTMENTS Follow-up Plan PCP 2 weeks OTHER ORDERS: Other Orders: PT SCHOOL/WORK RELEASE May return to School/Work with: No Restrictions NIKI HASSAN Jul 22, 2018 10:47
[2018-07-22] MEDS ORDERED: CLON0.1T14 PO (10:49)
--- NOTE | 2018-07-22 10:51 | DS ---
Date/Time of Note Date/Time of Note DATE: 07/22/18 TIME: 10:51 Discharge Summary Admission/Discharge Info Admit Date/Time Jul 14, 2018 at 06:31 Discharge Date/Time Discharge Diagnosis left hip bursitis Patient Condition: Stable Consults Dr Fernandez. ortho surgeon Procedures intraarticular injection left hip Hx of Present Illness Hospital Course This is a 53-year-old male with a past medical history of kidney and pancreatic transplant, CKD, hypothyroidism, depression, and anemia presented to the ER because of left hip pain after he had a mechanical fall just prior to arrival. He said he fail on 07/12/18 in HD center. He lost his balance, denied loss of consciousness. He was started on HD 04/25/2019. Admission ds: 1. S/p ground fall. Trochanteric bursitis of the left hip, posttraumatic. 2. Central peribronchial edema 2/2 CKD 3. History of kidney and pancreatic transplant, on Tacrolimus. 4. ESRD on HD MWFr 5. Hypertension. 6. Macrocytic normochromic anemia. 7. Peripheral vascular disease, status post left popliteal bypass on 2017. 8. Right foot partial amputation. 9. Skin cancer with right hand malignant lesion. 10. Diabetes mellitus type II 11. Hypothyroidism 12. Depression 13. CAD 14. Adrenal insufficiency 15. dyslipidemia 16. Bradycardia, asymptomatic During hospitalization pt was in [facility] [place], floor, He was under fall precaution and had his left hip and pelvis evaluated by CT scan and Xray. All was negative for fracture. Pt pain was nt controlled well despite his negative diagnostic studies. He was seen by dr Fernandez, orthopedic surgeon. Dr Fernandez evaluated pt for his severe pain after recurrent fall and injected him a steroid in left hip.Pt had HD on MWFr schedule and he was continued on his home medications Myfortic/Prograft. Pt is status post renal/Pancreas transplant failed, he is now on HD via right groin Permacath. Pt was evaluated by PT, he was recommended to be sent to SNF. Case management referred pt to few SNF but was not successful. During hospitalization pt was continued with nifedipine/Lasix. We hold labetalol due to bradycardia, then restarted clonidine due to hypertension. Pt said that after injection feel better and he wants to be dis charged, he understands that he is daisy risk for fall due to his right metatarsal amputation but he desire te to go home where he will be cared by his consultant dietitian, who has a membership in gym. He might do some exercises at home, he knows what to do. His insurance did not approve a PT for home and patient insisted on going home saying that his pain decreased significantly and he will use some Tramadol for pain. He confirms that he is a high risk but said he does not be in SNF now. After 3 session of PT he feels more steady. Home Meds Active Scripts Clonidine Hcl* (Catapres*) 0.1 Mg Tablet, 0.1 MG PO TID for 30 Days, TAB Prov:NIKI HASSAN 07/22/18 Reported Medications Potassium Chloride* (Potassium Chloride*) 8 Meq Capsule.er, 8 MEQ PO BID, CAP 07/14/18 Docusate Sodium* (Colace*) 100 Mg Capsule, 200 MG PO BID, #60 CAP 07/14/18 Duloxetine Hcl* (Duloxetine Hcl*) 30 Mg Capsule.dr, 30 MG PO DAILY, #30 CAP 07/14/18 Levothyroxine Sodium* (Levothyroxine Sodium*) 25 Mcg Tablet, 25 MCG PO BEFORE BREAKFAST, #30 TAB 07/14/18 Furosemide* (Furosemide*) 20 Mg Tablet, 20 MG PO BID, #30 TAB 07/14/18 Mycophenolate Mofetil* (Cellcept*) 250 Mg Capsule, 250 MG PO BID, CAP 07/14/18 Levetiracetam* (Levetiracetam*) 500 Mg Tablet, 500 MG PO BID, TAB 07/14/18 Acetaminophen* (Acetaminophen*) 650 Mg Tablet, 650 MG PO Q6H PRN for PAIN AND OR ELEVATED TEMP, #30 TAB 03/14/18 Nitroglycerin* (Nitrostat*) 0.4 Mg Tab.subl, 0.4 MG SL Q5MIN PRN for CHEST PAIN, BOTTLE 03/14/18 Dutasteride* (Avodart*) 0.5 Mg Capsule, 0.5 MG PO DAILY, CAP 03/14/18 Atorvastatin Calcium* (Atorvastatin Calcium*) 20 Mg Tablet, 20 MG PO QHS, #30 TAB 03/14/18 Aspirin* (Aspirin* EC) 81 Mg Tablet.dr, 81 MG PO DAILY, TAB 03/14/18 Clonidine Hcl* (Clonidine Hcl*) 0.1 Mg Tab, 0.1 MG PO BID, TAB 03/14/18 Nifedipine* (Nifedipine ER*) 60 Mg Tablet.sa, 60 MG PO DAILY, TAB.SA 03/14/18 Mycophenolate Sodium* (Myfortic*) 180 Mg Tab, 540 MG PO Q12, TAB 03/14/18 Tacrolimus* (Prograf*) 0.5 Mg Capsule, 0.5 MG PO Q12, CAP 03/14/18 Tacrolimus* (Prograf*) 1 Mg Capsule, 1 MG PO Q12, CAP 03/14/18 Discontinued Reported Medications Labetalol Hcl* (Labetalol Hcl*) 100 Mg Tablet, 100 MG PO DAILY, TAB 07/14/18 Follow-up Plan PCP 2 weeks Primary Care Provider James Benito MD Time spent on discharge: < 30 minutes Pending Labs Laboratory Tests Test 07/22/18 05:48 White Blood Count 3.8 10^3/ul (4.8-10.8) Red Blood Count 2.98 10^6/ul (4.70-6.10) Hemoglobin 9.0 g/dl (14.0-18.0) Hematocrit 29.4 % (42.0-52.0) Mean Corpuscular Volume 98.7 fl (82.0-101.0) Mean Corpuscular Hemoglobin 30.2 pg (29.0-33.0) Mean Corpuscular Hemoglobin Concent 30.6 g/dl (32.0-37.0) Red Cell Distribution Width 17.8 % (11.5-14.5) Platelet Count 269 10^3/UL (140-415) Mean Platelet Volume 9.8 fl (7.4-10.4) Immature Granulocytes % 1.300 % (0.001-0.429) Neutrophils % 51.2 % (39.0-77.0) Lymphocytes % 29.0 % (15.0-51.0) Monocytes % 16.4 % (0.0-11.0) Eosinophils % 1.6 % (0.0-7.0) Basophils % 0.5 % (0.0-2.0) Nucleated Red Blood Cells % 0.0 /100WBC (0.0-0.0) Immature Granulocytes # 0.050 10^3/ul (0.0-0.031) Neutrophils # 2.0 10^3/ul (1.6-7.5) Lymphocytes # 1.1 10^3/ul (0.8-2.9) Monocytes # 0.6 10^3/ul (0.3-0.9) Eosinophils # 0.1 10^3/ul (0.0-0.5) Basophils # 0.0 10^3/ul (0.0-0.1) Nucleated Red Blood Cells # 0.0 10^3/ul (0.0-0.0) Sodium Level 135 mmol/L (135-144) Potassium Level 4.0 mmol/L (3.5-5.1) Chloride Level 99 mmol/L (97-110) Carbon Dioxide Level 29 mmol/L (21-31) Anion Gap 7 (5-13) Blood Urea Nitrogen 42 mg/dl (7-20) Creatinine 2.27 mg/dl (0.61-1.24) Est Glomerular Filtrat Rate mL/min 30 mL/min (>60) Glucose Level 109 mg/dl (70-220) Calcium Level 8.8 mg/dl (8.4-10.2) NIKI HASSAN 16, 2019 10:51
== END 2018-07-22 12:45 | disposition home or self-care (01) | DRG 557 ==
LOC: E/R 22:27 → 2NE 07-14 06:31
PROVIDERS: ADMIT Internal Medicine Nephrology; ATTEND Internal Medicine Nephrology
PROC: 5A1D70Z Performance of Urinary Filtration, Intermittent, Less than 6 Hours Per Day (ICD-10-PCS; 2018-07-14)
PROC: 3E0U33Z Introduction of Anti-inflammatory into Joints, Percutaneous Approach (ICD-10-PCS; principal; 2018-07-20)
PROC: 3E0U3BZ Introduction of Anesthetic Agent into Joints, Percutaneous Approach (ICD-10-PCS; 2018-07-20)
DX: M70.62 Trochanteric bursitis, left hip (principal); N18.6 End stage renal disease; I12.0 Hypertensive chronic kidney disease with stage 5 chronic kidney disease or end stage renal disease; E27.40 Unspecified adrenocortical insufficiency; T86.12 Kidney transplant failure; T86.891 Other transplanted tissue failure; J81.1 Chronic pulmonary edema; I69.954 Hemiplegia and hemiparesis following unspecified cerebrovascular disease affecting left non-dominant side; E11.22 Type 2 diabetes mellitus with diabetic chronic kidney disease; E03.9 Hypothyroidism, unspecified; F32.9 Major depressive disorder, single episode, unspecified; D63.1 Anemia in chronic kidney disease; E11.51 Type 2 diabetes mellitus with diabetic peripheral angiopathy without gangrene; I25.10 Atherosclerotic heart disease of native coronary artery without angina pectoris; E78.5 Hyperlipidemia, unspecified; C44.602 Unspecified malignant neoplasm of skin of right upper limb, including shoulder; R00.1 Bradycardia, unspecified; Z89.431 Acquired absence of right foot; Z99.2 Dependence on renal dialysis; S70.02XA Contusion of left hip, initial encounter; W19.XXXA Unspecified fall, initial encounter; W18.39XA Other fall on same level, initial encounter; Y92.89 Other specified places as the place of occurrence of the external cause
CPT/HCPCS: 36415; 71045; 72170; 72192; 73550; 80048; 81001; 82962; 83036; 84443; 85025; 86706; 87081; 87340; 90935; 93005; 96374; 96375; 96376; 97116; 97162; 97530; C9113; J0360; J0702; J1644; J1815; J1885; J2270; J2405; J7507; Q4081

== ENCOUNTER → 2018-07-13 | Outpatient (CLI) | payer MEDICAID ==
[~2018-07-13] MED LIST: ACET-2047 PO; ASPI-817 PO; ATOR20TA38 PO; CLON-379 PO; CLON0.1T14 PO; DOCU-144 PO; DULO30CA47 PO; DUTA0.5C PO; FOLI-49 PO; FURO20TA3 PO; ISOS60TA PO; LABE100T7 PO; LEVE500T8 PO; LEVO25TA6 PO; MYCO160 PO; MYCO250C3 PO; NIFE60TA18 PO; NITR0.4T39 SL; POTA8CAP PO; PRED2.5T3 PO; RANO500T2 PO; TACR0.5C18 PO; TACR1CAP26 PO; ZINC220T PO
== END | disposition home or self-care (01) ==
LOC: RAD 09:07
PROVIDERS: ATTEND Internal Medicine Nephrology
DX: R10.2 Pelvic and perineal pain (principal)
CPT/HCPCS: 72170

== ENCOUNTER 2018-12-28 05:27 | Day surgery (SDC) | payer MEDICAID ==
[2018-12-28] VITALS (16 sets, daily range): BP systolic 111–212; BP diastolic 62–94; PULSE 50–66; RESP 12–19; Ht 180.3 cm; Wt 56.9 kg
[~2018-12-28] VITALS: Ht 180.3 cm; Wt 56.9 kg
[~2018-12-28 05:27] MED LIST changes: +CLON0.1T14 PO; +CLON0.2T5 PO; +DOCU-144 PO; +DULO30CA47 PO; +FURO20TA3 PO; +LEVE500T8 PO; +LEVO25TA6 PO; +LOSA25TA12 PO; +MYCO180T2 PO; +MYCO200S PO; +MYCO250C3 PO; +NIFE60TA24 PO; +POTA8CAP PO; +RANO10002 PO; -RANO500T2 PO; +TACR0.5C PO; +TRAM50TA PO; -ZINC220T PO
[2018-12-28] MEDS ORDERED: LACTATED RINGER'S 1,000 ML IV SCH (06:30)
[2018-12-28] MEDS ORDERED: MIDAZOLAM 1 MG/ML 2 ML INJ ONE (07:29)
[2018-12-28] MEDS ORDERED: FENTAnyl 50 MCG/ML VIAL ONE (07:30)
[2018-12-28] MEDS ORDERED: LIDOCAINE 1% (MDV) 20 ML INJ ONE (08:15)
[2018-12-28] MEDS ORDERED: IODIXANOL LOCM 100 ML BTL ONE (08:16)
[2018-12-28] MEDS ORDERED: hydrALAzine 20 MG INJ IV STA (09:07)
== END 2018-12-28 10:58 | disposition home or self-care (01) ==
LOC: SDS 05:27 → CCL 05:27
PROVIDERS: ATTEND Surgery Vascular Surgery
DX: I72.4 Aneurysm of artery of lower extremity (principal); E11.9 Type 2 diabetes mellitus without complications; I12.0 Hypertensive chronic kidney disease with stage 5 chronic kidney disease or end stage renal disease; N18.6 End stage renal disease; Z99.2 Dependence on renal dialysis; G81.94 Hemiplegia, unspecified affecting left nondominant side
CPT/HCPCS: 36902; 80053; 85025; 85610; 85730; C1725; C1894; J0360; J1644; J2250; J3010; Q9967; Z7610

== ENCOUNTER 2019-01-15 14:43 | Inpatient (IN) | payer MEDICAID ==
[~2019-01-15] VITALS: Ht 180.3 cm; Wt 61.9 kg
[~2019-01-15 14:43] MED LIST changes: -ACET-2047 PO; +ACET-2343 PO; -CLON-379 PO; -CLON0.1T14 PO; +DULO30CA45 PO; -DULO30CA47 PO; +DULO30CA48 PO; +ERYT250C52 PO; +ESCI10TA48 PO; +FINA5TAB PO; +ISOS10TA2 PO; +LEVE500S8 PO; +MULTI PO; +MYCO500T PO; +Metoclopramide PO; +OMEP20CA17 PO; +PANT40TA4 PO; +POLY17PO6 PO; -POTA8CAP PO; +POTA8CAP19 PO; +SIME80TA60 PO; +THIA50TA11 PO
[2019-01-15] MEDS ORDERED: TACROLIMUS 1 MG CAP PO ONE (21:00)
[2019-01-15] MEDS ORDERED: RANOLAZINE (SR) 500 MG TAB PO ONE (21:30)
[2019-01-15] MEDS ORDERED: ATORVASTATIN 20 MG TAB PO ONE (21:30)
[2019-01-15] MEDS ORDERED: NIFEdipine (XL) 60 MG TAB PO ONE (21:30)
[2019-01-15] MEDS ORDERED: ONDANSETRON 4 MG INJ IV PRN (21:30)
[2019-01-15] MEDS ORDERED: FUROSEMIDE 20 MG TAB PO ONE (21:30)
[2019-01-15] MEDS ORDERED: ACETAMINOPHEN 325 MG TAB PO PRN (21:30)
[2019-01-15] MEDS ORDERED: POTASSIUM CHLORIDE (SR) 8 MEQ CAP PO ONE (21:30)
[2019-01-15 23:00] VITALS: BP 153/81; RESP 16
[2019-01-15 23:12] VITALS: Ht 180.3 cm; Wt 61.9 kg
[2019-01-16] MEDS ORDERED: NACL 0.9% 3 ML SYG IV SCH
[2019-01-16] MEDS ORDERED: traMADol 50 MG TAB PO PRN
[2019-01-16] MEDS ORDERED: DOCUSATE SODIUM 100 MG CAP PO PRN
[2019-01-16] MEDS ORDERED: BISACODYL (EC) 5 MG TAB PO PRN
[2019-01-16] MEDS ORDERED: ACETAMINOPHEN 325 MG TAB PO PRN
[2019-01-16 02:58] VITALS: BP 153/68; PULSE 53; RESP 18
[2019-01-16 04:59] VITALS: BP 123/69; PULSE 54; RESP 18
[2019-01-16] MEDS: LEVOTHYROXINE 25 MCG TAB PO SCH (06:54)
[2019-01-16 07:38] VITALS: BP 120/61; PULSE 62; RESP 20
[2019-01-16] MEDS: DOCUSATE SODIUM 100 MG CAP PO SCH ×2 (08:45→20:41)
[2019-01-16] MEDS: DUTASTERIDE 0.5 MG CAP PO SCH (08:45)
[2019-01-16] MEDS: ASPIRIN (EC) 81 MG TAB PO SCH (08:45)
[2019-01-16] MEDS: FOLIC ACID 1 MG TAB PO SCH (08:45)
[2019-01-16] MEDS: predniSONE 2.5 MG TAB PO SCH (08:45)
[2019-01-16] MEDS: NIFEdipine (XL) 60 MG TAB PO SCH (08:46)
[2019-01-16] MEDS: LOSARTAN 25 MG TAB PO SCH (08:46)
[2019-01-16] MEDS: ISOSORBIDE MONONITRATE(SR)60 MG TAB PO SCH ×2 (08:47→20:41)
[2019-01-16] MEDS: RANOLAZINE (SR) 500 MG TAB PO SCH ×2 (08:47→20:44)
[2019-01-16] MEDS: MYCOPHENOLATE (SR) 180 MG TAB PO SCH (08:47)
[2019-01-16] MEDS: FUROSEMIDE 20 MG TAB PO SCH ×2 (08:48→20:43)
[2019-01-16] MEDS: TACROLIMUS 1 MG CAP PO SCH ×2 (08:48→20:44)
[2019-01-16] MEDS ORDERED: TACROLIMUS 0.5 MG CAP PO SCH (09:00)
[2019-01-16] MEDS ORDERED: [UNRECOGNIZED DRUG - REMARK] XX SCH (12:00)
[2019-01-16 15:55] VITALS: BP 131/58; PULSE 72; RESP 19
[2019-01-16 19:15] VITALS: BP 120/65; PULSE 60; RESP 18
[2019-01-16] MEDS: ATORVASTATIN 20 MG TAB PO SCH (20:41)
[2019-01-17] VITALS (23 sets, daily range): BP systolic 138–185; BP diastolic 78–96; PULSE 46–88; RESP 18–20
[2019-01-17] MEDS: LEVOTHYROXINE 25 MCG TAB PO SCH ×2 (06:18→07:01)
[2019-01-17] MEDS: ISOSORBIDE MONONITRATE(SR)60 MG TAB PO SCH ×2 (08:22→22:13)
[2019-01-17] MEDS: RANOLAZINE (SR) 500 MG TAB PO SCH ×2 (08:22→22:10)
[2019-01-17] MEDS: MYCOPHENOLATE (SR) 180 MG TAB PO SCH (08:23)
[2019-01-17] MEDS: FOLIC ACID 1 MG TAB PO SCH (08:24)
[2019-01-17] MEDS: TACROLIMUS 1 MG CAP PO SCH ×2 (08:24→22:11)
[2019-01-17] MEDS: LOSARTAN 25 MG TAB PO SCH (08:24)
[2019-01-17] MEDS: DOCUSATE SODIUM 100 MG CAP PO SCH ×2 (08:24→22:12)
[2019-01-17] MEDS: FUROSEMIDE 20 MG TAB PO SCH ×2 (08:25→22:12)
[2019-01-17] MEDS: ASPIRIN (EC) 81 MG TAB PO SCH (08:26)
[2019-01-17] MEDS: DUTASTERIDE 0.5 MG CAP PO SCH ×2 (08:26→22:11)
[2019-01-17] MEDS: NIFEdipine (XL) 60 MG TAB PO SCH ×2 (08:26→22:11)
[2019-01-17] MEDS: predniSONE 2.5 MG TAB PO SCH (08:26)
[2019-01-17] MEDS ORDERED: hydrALAzine 20 MG INJ IV PRN (09:30)
[2019-01-17] MEDS ORDERED: LORAZEPAM 2 MG INJ IV PRN (09:30)
[2019-01-17] MEDS ORDERED: SOD CHLORIDE 0.9% 1,000 ML IV PRN (11:41)
[2019-01-17] MEDS ORDERED: HEPARIN 1000 UNITS/ML 10 ML INJ HE SCH ×2 (12:00)
[2019-01-17] MEDS ORDERED: SODIUM CHLORIDE 0.9% 1L BAG IV* PRN (12:00)
[2019-01-17] MEDS ORDERED: SODIUM CHLORIDE 0.9% 1L BAG IV PRN (12:00)
[2019-01-17] MEDS ORDERED: HEPARIN 1000 UNITS/ML 10 ML INJ CATHETER SCH (12:00)
[2019-01-17] MEDS ORDERED: ALBUMIN HUMAN 25% 50 ML IV PRN ×2 (12:00)
[2019-01-17] MEDS ORDERED: LIDOCAINE 1% (MDV) 20 ML INJ ONE (14:10)
[2019-01-17] MEDS ORDERED: HEPARIN 1000 UNITS/ML 10 ML INJ ONE (14:11)
[2019-01-17] MEDS ORDERED: FENTAnyl 50 MCG/ML VIAL ONE (14:18)
[2019-01-17] MEDS ORDERED: MIDAZOLAM 1 MG/ML 2 ML INJ ONE (14:18)
[2019-01-17] MEDS: ATORVASTATIN 20 MG TAB PO SCH (22:12)
[2019-01-18] VITALS (13 sets, daily range): BP systolic 103–147; BP diastolic 67–92; PULSE 52–85; RESP 16–18
[2019-01-18] MEDS: LEVOTHYROXINE 25 MCG TAB PO SCH (07:42)
[2019-01-18] MEDS: ASPIRIN (EC) 81 MG TAB PO SCH (07:43)
[2019-01-18] MEDS: FUROSEMIDE 20 MG TAB PO SCH ×2 (07:43→21:13)
[2019-01-18] MEDS: predniSONE 2.5 MG TAB PO SCH (09:08)
[2019-01-18] MEDS: DOCUSATE SODIUM 100 MG CAP PO SCH ×2 (09:08→21:17)
[2019-01-18] MEDS: ISOSORBIDE MONONITRATE(SR)60 MG TAB PO SCH ×2 (09:08→21:19)
[2019-01-18] MEDS: FOLIC ACID 1 MG TAB PO SCH (09:08)
[2019-01-18] MEDS: MYCOPHENOLATE (SR) 180 MG TAB PO SCH ×2 (09:09→21:14)
[2019-01-18] MEDS: RANOLAZINE (SR) 500 MG TAB PO SCH ×2 (09:09→21:17)
[2019-01-18] MEDS: TACROLIMUS 1 MG CAP PO SCH ×2 (09:09→21:15)
[2019-01-18] MEDS: LOSARTAN 25 MG TAB PO SCH (09:10)
[2019-01-18] MEDS ORDERED: ALTEPLASE (CATHFLO) 2 MG INJ CATHETER ONE (17:00)
[2019-01-18] MEDS: NIFEdipine (XL) 60 MG TAB PO SCH (21:16)
[2019-01-18] MEDS: ATORVASTATIN 20 MG TAB PO SCH (21:17)
[2019-01-18] MEDS: DUTASTERIDE 0.5 MG CAP PO SCH (21:18)
[2019-01-19 02:38] VITALS: BP 142/71; PULSE 57; RESP 18
[2019-01-19] MEDS ORDERED: LEVOTHYROXINE 25 MCG TAB PO SCH (06:00)
[2019-01-19] MEDS ORDERED: ASPIRIN (EC) 81 MG TAB PO SCH (06:00)
[2019-01-19] MEDS: FUROSEMIDE 20 MG TAB PO SCH (06:07)
[2019-01-19 08:30] VITALS: BP 148/89; PULSE 58; RESP 18
[2019-01-19] MEDS: predniSONE 2.5 MG TAB PO SCH (09:07)
[2019-01-19] MEDS: DOCUSATE SODIUM 100 MG CAP PO SCH (09:07)
[2019-01-19] MEDS: MYCOPHENOLATE (SR) 180 MG TAB PO SCH (09:08)
[2019-01-19] MEDS: FOLIC ACID 1 MG TAB PO SCH (09:08)
[2019-01-19] MEDS: RANOLAZINE (SR) 500 MG TAB PO SCH (09:08)
[2019-01-19] MEDS: LOSARTAN 25 MG TAB PO SCH (09:08)
[2019-01-19] MEDS: TACROLIMUS 1 MG CAP PO SCH (09:08)
[2019-01-19] MEDS: ISOSORBIDE MONONITRATE(SR)60 MG TAB PO SCH (09:09)
== END 2019-01-19 11:38 | disposition home or self-care (01) | DRG 314 ==
LOC: E/R 14:43 → MS1 21:21
PROVIDERS: ADMIT Internal Medicine Nephrology; ATTEND Internal Medicine Nephrology
PROC: 02H633Z Insertion of Infusion Device into Right Atrium, Percutaneous Approach (ICD-10-PCS; 2019-01-17)
PROC: B518YZA Fluoroscopy of Superior Vena Cava using Other Contrast, Guidance (ICD-10-PCS; 2019-01-17)
PROC: 5A1D70Z Performance of Urinary Filtration, Intermittent, Less than 6 Hours Per Day (ICD-10-PCS; 2019-01-17)
PROC: 0JH63XZ Insertion of Tunneled Vascular Access Device into Chest Subcutaneous Tissue and Fascia, Percutaneous Approach (ICD-10-PCS; principal; 2019-01-17 13:00)
PROC: 5A1D70Z Performance of Urinary Filtration, Intermittent, Less than 6 Hours Per Day (ICD-10-PCS; 2019-01-18)
DX: T82.868A Thrombosis due to vascular prosthetic devices, implants and grafts, initial encounter (principal); N18.6 End stage renal disease; I12.0 Hypertensive chronic kidney disease with stage 5 chronic kidney disease or end stage renal disease; Z94.83 Pancreas transplant status; T86.12 Kidney transplant failure; E11.9 Type 2 diabetes mellitus without complications; D64.9 Anemia, unspecified; D63.1 Anemia in chronic kidney disease; E78.5 Hyperlipidemia, unspecified; I72.9 Aneurysm of unspecified site; E03.9 Hypothyroidism, unspecified; I73.9 Peripheral vascular disease, unspecified; F32.9 Major depressive disorder, single episode, unspecified; Z99.2 Dependence on renal dialysis; Z79.82 Long term (current) use of aspirin; Y83.2 Surgical operation with anastomosis, bypass or graft as the cause of abnormal reaction of the patient, or of later complication, without mention of misadventure at the time of the procedure; Y92.019 Unspecified place in single-family (private) house as the place of occurrence of the external cause
CPT/HCPCS: 76937; 80048; 80053; 83036; 85025; 85610; 85730; 87340; 90935; 93005; 93926; 93970; J0360; J1644; J2250; J2997; J3010; J7507; J7512

== ENCOUNTER 2019-01-21 21:18 | Inpatient (IN) | payer MEDICAID ==
[~2019-01-21] VITALS: Ht 180.3 cm; Wt 76.0 kg
[~2019-01-21 21:18] MED LIST changes: -ACET-2343 PO; -DULO30CA48 PO; -LEVE500T8 PO; -MYCO160 PO; -MYCO200S PO; -MYCO250C3 PO; -NIFE60TA18 PO; -TACR0.5C18 PO; -TACR1CAP26 PO
[2019-01-22] VITALS (10 sets, daily range): BP systolic 132–188; BP diastolic 69–100; PULSE 57–72; RESP 18–20; Ht 180.3 cm; Wt 76.0 kg
[2019-01-22] MEDS ORDERED: ACETAMINOPHEN 325 MG TAB PO PRN (01:00)
[2019-01-22] MEDS ORDERED: traMADol 50 MG TAB PO PRN (01:00)
[2019-01-22] MEDS: LEVOTHYROXINE 25 MCG TAB PO SCH (06:37)
[2019-01-22] MEDS: FOLIC ACID 1 MG TAB PO SCH (09:00)
[2019-01-22] MEDS: ASPIRIN (EC) 81 MG TAB PO SCH (09:00)
[2019-01-22] MEDS: LOSARTAN 25 MG TAB PO SCH (09:00)
[2019-01-22] MEDS: predniSONE 2.5 MG TAB PO SCH (09:00)
[2019-01-22] MEDS: FUROSEMIDE 20 MG TAB PO SCH ×2 (09:00→20:05)
[2019-01-22] MEDS: ISOSORBIDE MONONITRATE(SR)60 MG TAB PO SCH ×2 (09:00→20:05)
[2019-01-22] MEDS: DUTASTERIDE 0.5 MG CAP PO SCH (09:00)
[2019-01-22] MEDS ORDERED: POTASSIUM CHLORIDE (SR) 8 MEQ CAP PO SCH (09:00)
[2019-01-22] MEDS ORDERED: TACROLIMUS 1 MG CAP PO SCH ×2 (09:00→21:00)
[2019-01-22] MEDS: DOCUSATE SODIUM 100 MG CAP PO SCH ×2 (09:00→20:04)
[2019-01-22] MEDS: MYCOPHENOLATE (SR) 180 MG TAB PO SCH (09:00)
[2019-01-22] MEDS: RANOLAZINE (SR) 500 MG TAB PO SCH ×2 (09:00→20:04)
[2019-01-22] MEDS: NIFEdipine (XL) 60 MG TAB PO SCH (09:00)
[2019-01-22] MEDS: TACROLIMUS 1 MG CAP PO SCH ×2 (10:23→20:05)
[2019-01-22] MEDS: hydrALAzine 20 MG INJ IV PRN ×2 (10:24→18:50)
[2019-01-22] MEDS ORDERED: morphine 2 MG INJ IV PRN (10:30)
[2019-01-22] MEDS ORDERED: CEFAZOLIN 1 GM/50 ML (PMX) 50 ML IVPB ONE (16:10)
[2019-01-22] MEDS ORDERED: LIDOCAINE 1% (MDV) 20 ML INJ ONE (16:15)
[2019-01-22] MEDS ORDERED: HEPARIN 1000 UNITS/ML 10 ML INJ ONE (16:15)
[2019-01-22] MEDS ORDERED: ATORVASTATIN 20 MG TAB PO SCH (21:00)
[2019-01-23] VITALS (16 sets, daily range): BP systolic 109–150; BP diastolic 60–85; PULSE 64–78; RESP 18–20
[2019-01-23] MEDS: LEVOTHYROXINE 25 MCG TAB PO SCH (08:17)
[2019-01-23] MEDS: DOCUSATE SODIUM 100 MG CAP PO SCH (08:18)
[2019-01-23] MEDS: ISOSORBIDE MONONITRATE(SR)60 MG TAB PO SCH (08:18)
[2019-01-23] MEDS: FOLIC ACID 1 MG TAB PO SCH (08:18)
[2019-01-23] MEDS: MYCOPHENOLATE (SR) 180 MG TAB PO SCH (08:18)
[2019-01-23] MEDS: TACROLIMUS 1 MG CAP PO SCH (08:18)
[2019-01-23] MEDS: predniSONE 2.5 MG TAB PO SCH (08:18)
[2019-01-23] MEDS: FUROSEMIDE 20 MG TAB PO SCH (08:18)
[2019-01-23] MEDS: DUTASTERIDE 0.5 MG CAP PO SCH (08:18)
[2019-01-23] MEDS: LOSARTAN 25 MG TAB PO SCH (08:18)
[2019-01-23] MEDS: RANOLAZINE (SR) 500 MG TAB PO SCH (08:18)
[2019-01-23] MEDS: ASPIRIN (EC) 81 MG TAB PO SCH (08:18)
[2019-01-23] MEDS: NIFEdipine (XL) 60 MG TAB PO SCH (08:19)
== END 2019-01-23 10:50 | disposition home or self-care (01) | DRG 314 ==
LOC: E/R 21:18 → 2NE 23:03
PROVIDERS: ADMIT Internal Medicine Nephrology; ATTEND Internal Medicine Nephrology
PROC: 02PY33Z Removal of Infusion Device from Great Vessel, Percutaneous Approach (ICD-10-PCS; principal; 2019-01-22)
PROC: 02HV33Z Insertion of Infusion Device into Superior Vena Cava, Percutaneous Approach (ICD-10-PCS; 2019-01-22)
PROC: B518ZZA Fluoroscopy of Superior Vena Cava, Guidance (ICD-10-PCS; 2019-01-22)
PROC: 5A1D70Z Performance of Urinary Filtration, Intermittent, Less than 6 Hours Per Day (ICD-10-PCS; 2019-01-22)
DX: T82.41XA Breakdown (mechanical) of vascular dialysis catheter, initial encounter (principal); N18.6 End stage renal disease; I12.0 Hypertensive chronic kidney disease with stage 5 chronic kidney disease or end stage renal disease; T86.12 Kidney transplant failure; T86.891 Other transplanted tissue failure; I69.954 Hemiplegia and hemiparesis following unspecified cerebrovascular disease affecting left non-dominant side; E11.8 Type 2 diabetes mellitus with unspecified complications; E11.22 Type 2 diabetes mellitus with diabetic chronic kidney disease; E11.21 Type 2 diabetes mellitus with diabetic nephropathy; Z99.2 Dependence on renal dialysis; I25.10 Atherosclerotic heart disease of native coronary artery without angina pectoris; E78.5 Hyperlipidemia, unspecified; E03.9 Hypothyroidism, unspecified; I73.9 Peripheral vascular disease, unspecified; I25.9 Chronic ischemic heart disease, unspecified; Z79.4 Long term (current) use of insulin; Z79.82 Long term (current) use of aspirin; Y84.8 Other medical procedures as the cause of abnormal reaction of the patient, or of later complication, without mention of misadventure at the time of the procedure; Y92.019 Unspecified place in single-family (private) house as the place of occurrence of the external cause
CPT/HCPCS: 36415; 36556; 71045; 80053; 83690; 85025; 85610; 85730; 90935; C1750; J0360; J0690; J1644; J2270; J7507; J7512